=== PATIENT | female | born 1965 | race Caucasian/White ===

== ENCOUNTER → 2021-02-15 | Outpatient (CLI) | payer MEDICARE ==
[2021-02-15 23:18] LABS: Basophils # (A) 0.06 X 10*3/uL (0.00-0.10); Basophils % (A) 0.7 %; Eosinophils # (A) 0.27 X 10*3/uL (0.04-0.35); Eosinophils % (A) 3.1 %; HCT 40.3 % (37.2-46.3); HGB 13.2 g/dL (12.0-15.0); Lymphocytes # (A) 2.77 X 10*3/uL (0.90-5.00); Lymphocytes % (A) 31.9 %; MCH 30.3 pg (27.0-32.0); MCHC 32.8 g/dL (32.0-37.0); MCV 92.4 fL (80.0-97.0); Mean Platelet Volume 10.5 fL (9.5-12.2); Monocytes % (A) 5.8 %; Neutrophils # (A) 5.06 X 10*3/uL (1.80-7.70); Neutrophils % (A) 58.2 %; Platelet Count 287 X 10*3/uL (140-440); RBC 4.36 X 10*6/uL (4.10-5.20); RDW 12.9 % (11.5-14.5); WBC 8.69 X 10*3/uL (4.50-10.00)
[2021-02-16 01:51] LABS: Erythrocyte Sedimentation Rate 12 mm/Hr (0-30)
== END | disposition home or self-care (01) ==
LOC: LABWHC1 15:47
PROVIDERS: ATTEND Physician Assistant
DX: M86.9 Osteomyelitis, unspecified (principal)
CPT/HCPCS: 36415; 85025; 85652; 86140

== ENCOUNTER → 2021-02-25 | Outpatient (CLI) | payer MEDICARE ==
--- NOTE | 2021-02-26 09:15 | CT ---
EXAMINATION TYPE: CT thor lumbar spine wo con DATE OF EXAM: 02/25/2021 COMPARISON: None HISTORY: 55-year-old female back pain and right leg tingling TECHNIQUE: Contiguous axial scanning of the thoracic and lumbar spine without IV contrast. Coronal an d sagittal reconstructions performed. CT DLP: 959 mGycm Automated exposure control for dose reduction was used. FINDINGS: Spinal stimulator array centered along the mid thoracic spinal canal. Leads enter via the T9-T10 inte rlaminar space. Scattered mild disc space narrowing throughout the thoracic spine. Moderate degenerative disc disease L5-S1 with disc space narrowing, right paracentral disc osteophyte complex, and vacuum phenomenon. Bulging disc also noted at L4-L5. Some ligamentum flavum thickening suggested at L3-L4. Within the thoracic spine, no obvious sizable disc herniation is seen or abdomen canal compromise. Th ere is some limitation due to the artifact from the stimulator array. Facet arthropathy lower lumbar spine. At L4-L5, disc bulge impresses on the ventral thecal sac but does not cause clear canal compromise. M ild bilateral neuroforaminal stenosis. At L5-S1, right paracentral disc osteophyte complex may impinge the traversing right S1 nerve root. C hanges involved in moderate right and mild left neuroforaminal stenosis. Vertebral body heights are preserved and alignment is maintained. There is moderate right-sided hydronephrosis with a 1.2 cm calculus at the right UPJ. An additional 1 .1 cm calculus is present in the right renal collecting system and could soon pass to the ureter as w ell. IMPRESSION: 1. MODERATE RIGHT-SIDED HYDRONEPHROSIS WITH A 1.2 CM STONE AT THE RIGHT UPJ. AN ADDITIONAL 1.1 CM DANDY CULUS IN THE RIGHT RENAL COLLECTING SYSTEM COULD SOON PASS TO THE URETER WELL. 2. NO VERTEBRAL COMPRESSION COLLAPSE OR MALALIGNMENT. 3. RIGHT PARACENTRAL DISC OSTEOPHYTE COMPLEX AT L5-S1 WITH MODERATE DEGENERATIVE DISC DISEASE. THIS M AY IMPINGE THE TRAVERSING RIGHT S1 NERVE ROOT. WITH FACET ARTHROPATHY IN THE LOWER LUMBAR SPINE, THER E IS MODERATE RIGHT AND MILD LEFT NEURAL FORAMINAL STENOSIS HERE. 4. MILD DISC BULGE AT L4-L5 WITHOUT SIGNIFICANT SPINAL CANAL STENOSIS. MILD BILATERAL NEUROFORAMINAL STENOSIS HERE.
== END | disposition home or self-care (01) ==
LOC: RADCTMAIN 16:59
PROVIDERS: ATTEND Psychiatry & Neurology Neurology
DX: N13.2 Hydronephrosis with renal and ureteral calculous obstruction (principal); M51.37 Other intervertebral disc degeneration, lumbosacral region; M46.96 Unspecified inflammatory spondylopathy, lumbar region; M48.061 Spinal stenosis, lumbar region without neurogenic claudication
CPT/HCPCS: 72128; 72131

== ENCOUNTER → 2021-09-01 | Outpatient (CLI) | payer MEDICARE, OTHER ==
--- NOTE | 2021-09-01 21:54 | CT ---
EXAMINATION TYPE: CT abdomen pelvis wo con DATE OF EXAM: 09/01/2021 COMPARISON: CT dated 03/03/2014 HISTORY: right flank pain CT DLP: 1093 mGycm Automated exposure control for dose reduction was used. TECHNIQUE: Helical acquisition of images was performed from the lung bases through the pelvis. No IV contrast administration. FINDINGS: Right renal pelvis obstructing stone measuring 12 x 13 mm with moderate to marked dilatation of the r ight renal collecting system, this could be acute or chronic. Mild soft tissue thickening seen surrou nding the right renal pelvis stone, associated infection cannot be excluded. Nonobstructing stone is seen at the lower pole of the right kidney measuring 11 x 12 mm with 2 mm nonobstructing calculus at the midportion of the right kidney. No other definite radiodense urinary calculi. No left-sided hydroureter or hydronephrosis. No right-s ided hydroureter. Grossly unremarkable urinary bladder. 13 mm calcified structure is seen inseparable from the anterior left lateral aspect of the uterus/left adnexa, stable since 2014 CT scan and possi sonali representing tiny calcified subserosal fibroid. Otherwise no gross uterine or adnexal mass. Unremarkable unenhanced CT appearance of the liver, spleen, pancreas and adrenals. The gallbladder is not distended probably due to nonfasting. Mild arterial atherosclerotic calcifications. Unremarkable stomach, duodenum and small bowel. Moderate fecal loading of the colon. No suspicious lymphadenopath y or sizable ascites. Right flank subcutaneous stimulator device. Unremarkable lung bases. Degenerati ve changes at L5-S1 level. IMPRESSION: 13 mm right renal pelvis obstructing stone as described above which could be acute or chronic. Associ ated infection cannot be excluded, please correlate clinically and with urinalysis results. Other rig ht renal nonobstructing calculi and other incidental findings as described above.
== END | disposition home or self-care (01) ==
LOC: RADCTMAIN 15:37
PROVIDERS: ATTEND Urology
DX: N13.2 Hydronephrosis with renal and ureteral calculous obstruction (principal)
CPT/HCPCS: 74176

== ENCOUNTER → 2021-09-13 | Outpatient (CLI) | payer MEDICARE, OTHER ==
[2021-09-13 18:26] LABS: Basophils # (A) 0.08 X 10*3/uL (0.00-0.10); Basophils % (A) 0.6 %; Eosinophils # (A) 0.29 X 10*3/uL (0.04-0.35); Eosinophils % (A) 2.2 %; HCT 43.5 % (37.2-46.3); Immature Grans, Automated 0.5 %; Lymphocytes # (A) 3.55 X 10*3/uL (0.90-5.00); Lymphocytes % (A) 27.1 %; MCHC 32.2 g/dL (32.0-37.0); MCV 90.2 fL (80.0-97.0); Mean Platelet Volume 10.2 fL (9.5-12.2); Monocytes # (A) 0.73 X 10*3/uL (0.20-1.00); Monocytes % (A) 5.6 %; NRBC Per 100 WBC 0 /100 WBCS (0.0-0.0); Neutrophils # (A) 8.38 X 10*3/uL (1.80-7.70); Platelet Count 379 X 10*3/uL (140-440); RBC 4.82 X 10*6/uL (4.10-5.20); RDW 13.1 % (11.5-14.5); WBC 13.09 X 10*3/uL (4.50-10.00)
[2021-09-13 18:48] LABS: African American GFR (CKD) 91.6 (60.0-200.0); Anion Gap 13.5 mmol/L (10.00-18.00); BUN/Creat Ratio 16.06 Ratio (12.00-20.00); Blood Urea Nitrogen 13.3 mg/dL (9.0-27.0); Carbon Dioxide 23.3 mmol/L (20.0-27.5); Non-African American GFR(CKD) 79.1 (60.0-200.0); Potassium 4.6 mmol/L (3.5-5.5)
[2021-09-13 19:48] LABS: Appearance,Urine Cloudy (Clear); Bacteria,Urine 1+ /HPF (None Seen); Bilirubin,Urine Negative (Negative); Blood,Urine Small (Negative); Calcium Oxalate Crystals,Urine Present /LPF (None Seen); Color,Urine Yellow (Yellow); Ketones,Urine Negative (Negative); Leukocyte Esterase,Urine Moderate (Negative); Nitrite,Urine Negative (Negative); PH, Urine 5.5 (5.0-8.0); Protein,Urine 30 (Negative); Specific Gravity,Urine 1.022 (1.001-1.030); Urobilinogen,Urine 0.2 (0.2,1.0); WBC,Urine >100 /HPF (0-5); Yeast (UA) Present /LPF (None Seen)
== END | disposition home or self-care (01) ==
LOC: LABPAT 13:30
PROVIDERS: ATTEND Urology
DX: Z01.812 Encounter for preprocedural laboratory examination (principal); N20.0 Calculus of kidney
CPT/HCPCS: 36415; 80048; 81001; 85025; 87086

== ENCOUNTER 2021-09-20 09:28 | Day surgery (SDC) | payer MEDICARE, OTHER ==
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
[2021-09-16 15:39] VITALS: BMI 36.1
[~2021-09-20 09:28] MED LIST: DEXAMETHASONE SOD PHOSPHATE 4 MG/ML 1 ML VIAL IV ONE; GENTAMICIN 120 MG in SODIUM CHLORIDE 0.9% 100 ML IVPB PRN; LIDOCAINE 1% (10MG/ML) FOR IV START INTRADERMA PRN; ONDANSETRON 4 MG/2 ML VIAL IVP ONE; SCOPOLAMINE 1.5MG/72HR PATCH TRANSDERM ONE
[2021-09-20] MEDS ORDERED: LIDOCAINE 1% (10MG/ML) FOR IV START SQ ONE (10:05)
[2021-09-20] MEDS: LACTATED RINGERS 1,000 ML IV SCH (10:08)
[2021-09-20 10:09] LABS: Glucose,Whole Blood 175 mg/dL (75-99)
[2021-09-20] MEDS ORDERED: GLYCOPYRROLATE 0.2 MG/ML 2 ML VIAL ONE (10:57)
[2021-09-20] MEDS ORDERED: SUCCINYLCHOLINE CHLORIDE 100 MG/5 ML SYR IV ONE (10:57)
[2021-09-20] MEDS ORDERED: NEOSTIGMINE 1 MG/ML 10 ML VIAL ONE (10:57)
[2021-09-20] MEDS ORDERED: ROCURONIUM 10 MG/ML (5 ML VIAL) IV ONE (10:57)
[2021-09-20] MEDS ORDERED: PROPOFOL 10 MG/ML 20 ML VIAL IV ONE (10:57)
[2021-09-20] MEDS ORDERED: MIDAZOLAM 2 MG/2 ML VIAL ONE (10:57)
[2021-09-20] MEDS ORDERED: fentaNYL (PF) 50 MCG/ML 2 ML AMP ONE (10:57)
[2021-09-20] MEDS ORDERED: LIDOCAINE 1% INJ 10MG/ML (20 ML MDV) ONE (10:57)
[2021-09-20] MEDS ORDERED: IOPAMIDOL-370 50ML BTL IRRIGATION ONE ×2 (11:20)
[2021-09-20] MEDS: HYDROmorphone 0.5 MG/0.5 ML SYRINGE IVP PRN ×4 (12:30→15:35)
--- NOTE | 2021-09-20 12:30 | P.OP ---
Date of Procedure: 09/20/21 Preoperative Diagnosis: Right sided ureteral stone Postoperative Diagnosis: Right-sided ureteral stone and pyelonephritis Anesthesia: SRIA Surgeon: Eagle Lorenzo Estimated Blood Loss (ml): 10 Pathology: other (right renal culture) Condition: stable Disposition: PACU Indications for Procedure: This is a 55-year-old female with history of multiple right sided renal stone, total stone burden > 2 cm. Discussed with him the option of a right-sided percutaneous nephrolithotomy. Option of right staged ureteroscopy was also discussed. Risk and benefit of each approach were discussed in detail. She agreed to proceed with right-sided percutaneous nephrolithotomy. Discussed with him the risk which includes but not limited to bleeding, infection, injury to nearby organs which includes but not limited to bowel, spleen, lung. Discussed also with her risk from anesthesia. She understood all the risk and agreed to proceed right-sided percutaneous nephrolithotomy Operative Findings: Right Purulent urine from the collecting system Description of Procedure: Patient was brought to the operating room, general anesthesia was induced. On the stretcher a cystoscopy fitted with 21-Icelandic sheath was inserted per urethra, brief cystoscopy was performed which showed multiple white patches within the bladder, but no tumors were appreciated. 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 At this time the right ureteral orifice was intubated with a sensor wire. Next a ureteral balloon dilator was passed over the wire and into the proximal ureter. Next the a Gutierrez catheter was placed and the balloon occlusion catheter was secured to the Gutierrez. . Next the patient was positioned in prone, all pressure points were padded. Next air was injected through the balloon occlusion catheter, and access was obtained by interventional radiology, by Dr Santos. Once the access was obtained purulent urine was drained from the collecting system. The given this finding decision was made to abort the PCNL. Nephrostomy tube was placed by Dr. Ferrer, the urine sample was sent for culture. The patient was stable throughout the case. At this time she was awakened from anesthesia and taken to recovery in stable condition. She will be set up for a PCNL once her infection resolves
[2021-09-20] MEDS ORDERED: COLCHICINE 0.6 MG EACH PO PRN (12:36)
[2021-09-20] MEDS ORDERED: CYCLOBENZAPRINE 5 MG TAB PO PRN (12:36)
[2021-09-20] MEDS ORDERED: KETOROLAC 15 MG/ML 1 ML VIAL IVP ONE (13:13)
--- NOTE | 2021-09-20 13:30 | FL ---
EXAMINATION TYPE: FL guidance operating room DATE OF EXAM: 09/20/2021 COMPARISON: CT 09/01/2021 HISTORY: Hydronephrosis, ureteral obstruction with right nephrolithiasis. PROCEDURE: Maximal barrier technique was utilized, hand hygiene obtained with soap and water and alcohol-based h and rub. The skin overlying the right kidney was localized using fluoroscopy and the overlying skin prepped and draped. Skin janes was made with a scalpel. Access was gained under fluoroscopy, followin g placement of a ureteral occlusion balloon by the referring clinician and instillation of air in the renal collecting system with a 21-gauge needle to the posterior calyx right kidney. A suitable post erior calyx was chosen. A 0.018 inch wire was advanced. Transitional dilator was deployed, purulent material was noted in the hub of the catheter. Referring clinician then elected for nephrostomy tube placement. 10 Lithuanian tube was advanced over wire under fluoroscopy and fixed in place. Aspirated spe cimen submitted for microbiology analysis. The patient remained in stable condition without complicat ion. The patient was discharged to observation in the care of anesthesia. IMPRESSION: STATUS POST NEPHROSTOMY PLACEMENT WITH FLUOROSCOPIC GUIDANCE. THIS PROCEDURE PERFORMED BY THE UNDERS IGNED. Nephrolithotomy aborted due to pyonephrosis. 4.08 minutes fluoroscopy time, single image th e procedure
[2021-09-20] MEDS ORDERED: LEVOFLOXACIN 500MG-D5W PMX 500 MG in DEXTROSE/WATER 1 100ML.BAG IVPB SCH (17:00)
[2021-09-20] MEDS: HEPARIN SODIUM,PORCINE/PF 5,000 UNIT/0.5 ML SYRINGE SQ SCH (17:35)
[2021-09-20] MEDS: POTASSIUM CITRATE 10 MEQ TABLET.ER PO SCH ×2 (17:41→23:20)
[2021-09-20] MEDS: D5-0.45% NACL WITH KCL 20MEQ/L 1,000 ML IV SCH (18:09)
[2021-09-20] MEDS: MORPHINE SULFATE 4 MG/ML SYRINGE IV PRN ×2 (18:09→23:28)
[2021-09-20 20:26] LABS: Glucose,Whole Blood 325 mg/dL (75-99)
[2021-09-20] MEDS ORDERED: GABAPENTIN 400 MG CAP PO SCH (21:00)
[2021-09-20] MEDS ORDERED: traZODone HCL 100 MG TAB PO SCH (21:00)
[2021-09-20] MEDS: metFORMIN 500 MG TAB PO SCH (23:16)
[2021-09-20] MEDS: HYDROcodone/APAP 10-325MG 1 EACH TAB PO PRN (23:27)
[2021-09-20] MEDS: KETOROLAC 15 MG/ML 1 ML VIAL IVP PRN (23:28)
[2021-09-21] MEDS: HEPARIN SODIUM,PORCINE/PF 5,000 UNIT/0.5 ML SYRINGE SQ SCH ×2 (00:36→08:01)
[2021-09-21] MEDS: D5-0.45% NACL WITH KCL 20MEQ/L 1,000 ML IV SCH ×2 (02:07→09:49)
[2021-09-21] MEDS: HYDROcodone/APAP 10-325MG 1 EACH TAB PO PRN ×2 (05:21→12:38)
[2021-09-21] MEDS: KETOROLAC 15 MG/ML 1 ML VIAL IVP PRN (05:22)
[2021-09-21 07:03] LABS: Glucose,Whole Blood 260 mg/dL (75-99)
--- NOTE | 2021-09-21 07:18 | P.DS ---
Providers Attending physician: Eagle Lorenzo MD Primary care physician: [facility] Hospital Course: The patient is 55. She has infected kidney stones. She underwent a percutaneous nephrostomy tube placement yesterday. This was an attempt to do a percutaneous nephrostolithotomy but the urine was grossly infected therefore the procedure appropriately was aborted. She did well overnight without fever chills or significant pain. Vital signs are stable. We will discharge her home today. She'll given a prescription of Fraz[place] and Cipro. Dr. Lorenzo we'll set her up for a percutaneous nephrostolithotomy after the urine infection has been treated. Her condition is good. She'll go home with a nephrostomy tube. Patient Condition at Discharge: Good Plan - Discharge Summary Discharge Rx Participant: Yes New Discharge Prescriptions: New HYDROcodone/APAP 5-325MG [Frazee 5-325] 1 tab PO Q4HR PRN #14 tab PRN Reason: Pain Control Ciprofloxacin HCl [Cipro] 500 mg PO Q12HR 1 Days #20 tab No Action Naproxen [Naprosyn] 500 mg PO Q12HR PRN PRN Reason: Pain RX: Gabapentin 800 mg PO HS HYDROcodone/APAP 10-325MG [[place]ee 10-325] 1 tab PO BID PRN PRN Reason: Pain Potassium Citrate [Potassium Citrate ER] 10 meq PO QID Nitrofurantoin Macrocrystal [Nitrofurantoin] 100 mg PO DAILY Colchicine [Mitigare] 0.6 mg PO DAILY PRN PRN Reason: GOUT FLARE Varenicline [Chantix Continuing Pack] 1 mg PO DAILY Chlorzoxazone [Parafon Forte DSC] 500 mg PO QID PRN PRN Reason: MUSCLE RELAXER metFORMIN HCL [Glucophage] 500 mg PO BID Allopurinol [Zyloprim] 100 mg PO DAILY Cephalexin [Keflex] 500 mg PO Q12HR Morphine Sulfate [Ms Contin] 30 mg PO Q12HR Linagliptin [Tradjenta] 5 mg PO DAILY Rosuvastatin [Crestor] 10 mg PO DAILY RX: Medroxyprogesterone Acetate 5 mg PO DAILY RX: traZODone HCL 100 mg PO HS Ubrogepant [Ubrelvy] 100 mg PO DAILY PRN PRN Reason: Migraine Headache Ergocalciferol [Vitamin D2 (1250 Mcg = 17809 Iu)] 1,250 mcg PO MO Discharge Medication List Naproxen [Naprosyn] 500 mg PO Q12HR PRN 03/03/14 [History] RX: Gabapentin 800 mg PO HS 03/03/14 [History] Allopurinol [Zyloprim] 100 mg PO DAILY 09/16/21 [History] Cephalexin [Keflex] 500 mg PO Q12HR 09/16/21 [History] Chlorzoxazone [Parafon Forte DSC] 500 mg PO QID PRN 09/16/21 [History] Colchicine [Mitigare] 0.6 mg PO DAILY PRN 09/16/21 [History] Ergocalciferol [Vitamin D2 (1250 Mcg = 05227 Iu)] 1,250 mcg PO MO 09/16/21 [History] HYDROcodone/APAP 10-325MG [Frazee 10-325] 1 tab PO BID PRN 09/16/21 [History] Linagliptin [Tradjenta] 5 mg PO DAILY 09/16/21 [History] Morphine Sulfate [Ms Contin] 30 mg PO Q12HR 09/16/21 [History] Nitrofurantoin Macrocrystal [Nitrofurantoin] 100 mg PO DAILY 09/16/21 [History] Potassium Citrate [Potassium Citrate ER] 10 meq PO QID 09/16/21 [History] RX: Medroxyprogesterone Acetate 5 mg PO DAILY 09/16/21 [History] RX: traZODone HCL 100 mg PO HS 09/16/21 [History] Rosuvastatin [Crestor] 10 mg PO DAILY 09/16/21 [History] Ubrogepant [Ubrelvy] 100 mg PO DAILY PRN 09/16/21 [History] Varenicline [Chantix Continuing Pack] 1 mg PO DAILY 09/16/21 [History] metFORMIN HCL [Glucophage] 500 mg PO BID 09/16/21 [History] Ciprofloxacin HCl [Cipro] 500 mg PO Q12HR 1 Days #20 tab 09/21/21 [Rx] HYDROcodone/APAP 5-325MG [Frazee 5-325] 1 tab PO Q4HR PRN #14 tab 09/21/21 [Rx] Follow up Appointment(s)/Referral(s): Eagle Lorenzo MD [STAFF PHYSICIAN] - 1 Week Discharge Disposition: HOME SELF-CARE
[2021-09-21 07:48] VITALS: BP 99/63; PULSE 72; RESP 18; TEMP 98.4
[2021-09-21] MEDS: LACTATED RINGERS 1,000 ML IV SCH (08:01)
[2021-09-21] MEDS: POTASSIUM CITRATE 10 MEQ TABLET.ER PO SCH ×2 (08:24→12:38)
[2021-09-21] MEDS: metFORMIN 500 MG TAB PO SCH (08:24)
[2021-09-21 08:56] LABS: Basophils # (A) 0.04 X 10*3/uL (0.00-0.10); Basophils % (A) 0.3 %; Eosinophils # (A) 0.07 X 10*3/uL (0.04-0.35); Eosinophils % (A) 0.5 %; HCT 36.1 % (37.2-46.3); HGB 11.4 g/dL (12.0-15.0); Immature Grans, Automated 0.5 %; Lymphocytes # (A) 3.25 X 10*3/uL (0.90-5.00); MCH 28.4 pg (27.0-32.0); MCHC 31.6 g/dL (32.0-37.0); Mean Platelet Volume 10.1 fL (9.5-12.2); Monocytes # (A) 1.07 X 10*3/uL (0.20-1.00); Monocytes % (A) 6.9 %; NRBC Per 100 WBC 0 /100 WBCS (0.0-0.0); Neutrophils # (A) 10.94 X 10*3/uL (1.80-7.70); Neutrophils % (A) 70.8 %; Platelet Count 307 X 10*3/uL (140-440); RBC 4.01 X 10*6/uL (4.10-5.20); RDW 13.1 % (11.5-14.5); WBC 15.44 X 10*3/uL (4.50-10.00)
[2021-09-21] MEDS ORDERED: VARENICLINE 1 MG TAB PO SCH (09:00)
[2021-09-21] MEDS ORDERED: LINAGLIPTIN 5 MG TABLET PO SCH (09:00)
[2021-09-21] MEDS ORDERED: allopurinoL 100 MG TAB PO SCH (09:00)
[2021-09-21] MEDS ORDERED: ATORVASTATIN 20 MG TAB PO SCH (09:00)
[2021-09-21 11:03] LABS: Glucose,Whole Blood 224 mg/dL (75-99)
== END 2021-09-21 13:12 | disposition home or self-care (01) ==
LOC: OR 09:28 → 4SSUR 12:15 → OR 09-21 13:12
PROVIDERS: ATTEND Urology
DX: N20.1 Calculus of ureter (principal); N12 Tubulo-interstitial nephritis, not specified as acute or chronic; E78.5 Hyperlipidemia, unspecified; F17.200 Nicotine dependence, unspecified, uncomplicated; E11.9 Type 2 diabetes mellitus without complications; M10.9 Gout, unspecified; M19.90 Unspecified osteoarthritis, unspecified site
CPT/HCPCS: 50080; 85025; 87086; C2628; C1894; C1729; C1769; J2250; J2270; J1100; J2710; J0690; J2405; J1956; J2001; J3010; J1580; J1885 ×2; J0330; J2704; J1170; Q9967; 87075

== ENCOUNTER → 2021-10-27 | Outpatient (CLI) | payer MEDICARE, OTHER ==
[2021-10-27 23:28] LABS: HCT 44.3 % (37.2-46.3); HGB 14.2 g/dL (12.0-15.0); MCH 28.6 pg (27.0-32.0); MCHC 32.1 g/dL (32.0-37.0); MCV 89.1 fL (80.0-97.0); Mean Platelet Volume 9.8 fL (9.5-12.2); NRBC Per 100 WBC 0 /100 WBCS (0.0-0.0); Platelet Count 423 X 10*3/uL (140-440); RBC 4.97 X 10*6/uL (4.10-5.20); RDW 13.4 % (11.5-14.5); WBC 16.19 X 10*3/uL (4.50-10.00)
[2021-10-28 00:16] LABS: African American GFR (CKD) 89.3 (60.0-200.0); Anion Gap 12.2 mmol/L (10.00-18.00); BUN/Creat Ratio 15.13 Ratio (12.00-20.00); Blood Urea Nitrogen 12.8 mg/dL (9.0-27.0); Calcium 9.8 mg/dL (8.7-10.3); Carbon Dioxide 22.5 mmol/L (20.0-27.5); Potassium 4.3 mmol/L (3.5-5.5)
[2021-10-28 02:12] LABS: Appearance,Urine Turbid (Clear); Bilirubin,Urine Negative (Negative); Blood,Urine Large (Negative); Color,Urine Yellow (Yellow); Ketones,Urine Negative (Negative); Nitrite,Urine Negative (Negative); PH, Urine 5.5 (5.0-8.0)
[2021-10-28 03:50] LABS: Bacteria,Urine Trace /HPF (None Seen); Yeast (UA) Present /LPF (None Seen)
== END | disposition home or self-care (01) ==
LOC: LABWHC1 15:19
PROVIDERS: ATTEND Urology
DX: Z01.812 Encounter for preprocedural laboratory examination (principal); Z01.818 Encounter for other preprocedural examination; N20.1 Calculus of ureter
CPT/HCPCS: 36415; 80048; 81001; 85027; 87086

== ENCOUNTER 2021-11-03 10:21 | Inpatient (IN) | payer MEDICARE, OTHER ==
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
[2021-11-02 10:53] VITALS: BMI 35.5
[~2021-11-03 10:21] MED LIST changes: -SCOPOLAMINE 1.5MG/72HR PATCH TRANSDERM ONE
--- NOTE | 2021-11-03 10:45 | XR ---
KUB HISTORY: Preop Frontal KUB and 2 images, correlation prior exam 10/19/2021 Right-sided nephrostomy tube is in place. Calcifications are noted over the right kidney, one of the calcifications seen at the level of the renal pelvis on prior exam may have migrated into the renal c ollecting system. There is a stimulator present as on prior exam over the right gluteal region. IMPRESSION: Right-sided nephrolithiasis and indwelling nephrostomy tube. Additional post procedural c hange.
[2021-11-03 11:35] LABS: Glucose,Whole Blood 152 mg/dL (75-99)
[2021-11-03] MEDS: LACTATED RINGERS 1,000 ML IV SCH ×3 (11:41→17:46)
[2021-11-03] MEDS ORDERED: KETAMINE 10 MG/ML 20 ML VIAL ONE (12:10)
[2021-11-03] MEDS ORDERED: fentaNYL (PF) 50 MCG/ML 2 ML AMP ONE (12:10)
[2021-11-03] MEDS ORDERED: GLYCOPYRROLATE 0.2 MG/ML 2 ML VIAL ONE (12:10)
[2021-11-03] MEDS ORDERED: LIDOCAINE 2% INJ 20 MG/ML (2 ML VIAL) ONE (12:10)
[2021-11-03] MEDS ORDERED: NEOSTIGMINE 1 MG/ML 10 ML VIAL ONE (12:10)
[2021-11-03] MEDS ORDERED: ROCURONIUM 10 MG/ML (5 ML VIAL) IV ONE (12:10)
[2021-11-03] MEDS ORDERED: SUCCINYLCHOLINE CHLORIDE 100 MG/5 ML SYR IV ONE (12:10)
[2021-11-03] MEDS ORDERED: HYDROmorphone (PF) 1 MG/ML ONE (12:10)
[2021-11-03] MEDS ORDERED: PROPOFOL 10 MG/ML 20 ML VIAL IV ONE (12:10)
[2021-11-03] MEDS ORDERED: MIDAZOLAM 2 MG/2 ML VIAL ONE (12:10)
[2021-11-03] MEDS ORDERED: IOPAMIDOL-370 50ML BTL IRRIGATION ONE ×3 (12:49)
[2021-11-03] MEDS ORDERED: LACTATED RINGERS 1,000 ML IV ONE (14:00)
[2021-11-03] MEDS ORDERED: SUMAtriptan succinate 50 MG TAB PO PRN (16:45)
--- NOTE | 2021-11-03 16:45 | P.OP ---
Date of Procedure: 11/03/21 Preoperative Diagnosis: right sided ureteral stone Postoperative Diagnosis: same Procedure(s) Performed: Right sided PCNL, Anterograde nephrostogram, Antegrade stent placement and Nephrostomy tube exchange Implants: 6-Argentine by 26 cm stent in the right ureter Anesthesia: GUILLERMINA Surgeon: Eagle Lorenzo Estimated Blood Loss (ml): 100 Pathology: other (Right-sided ureteral stone) Condition: stable Disposition: PACU Indications for Procedure: This is a 55-year-old female with history of multiple right sided renal stone, total stone burden > 2 cm. she underwent a right sided nephrostomy tube placement on September 20, at that time purulent urine was drained from collecting systemt thus a PCNL was not performed. Discussed with her the option of a right-sided percutaneous nephrolithotomy. Option of right staged ureteroscopy was also discussed. Risk and benefit of each approach were discussed in detail. She agreed to proceed with right-sided percutaneous nephrolithotomy. Discussed with him the risk which includes but not limited to bleeding, infection, injury to nearby organs which includes but not limited to bowel, spleen, lung. Discussed also with her risk from anesthesia. She understood all the risk and agreed to proceed right-sided percutaneous nephrolithotomy Description of Procedure: Patient was brought to the operating room, general anesthesia was induced. A Gutierrez catheter was placed, next the patient was placed in a prone position, all pressure points were padded. Next the patient was prepped and draped in sterile fashion and placed in a prone position. Next a performed an antegrade nephrostogram on the right sided that showed no contrast draining past the UPJ stone. Next a sensor wire was advanced through the nephrostomy tube, and I was able to navigate the wire past the stone and into the bladder. Next I used 810 Argentine dilators and advanced over the sensor wire. Next a second stiff wire was advanced through the 10-Argentine dilators and at this time there was 2 wires down the ureter. Next incision was increased in size to accommodate for the access sheath. Next the NephroMax balloon dilator was passed over the stiff wire and into the calyx. And this was inflated under fluoroscopy. Next the the 30- Argentine sheath was advanced over the balloon dilator under fluoroscopy. Next the nephroscope was advanced through and a large stone was visualized at the UPJ. I was unable to fragment the stone using the rigid nephroscope. At this time I switched to the flexible cystoscope attention was then carried to the stone. Using holmium laser the stone was fragmented, sizable fragments were removed using the stone basket. After fragmenting the stone with the holmium laser there was no injury to the ureter, but there was significant edema at the site of stone impaction. Repeat renoscopy showed no additional stones within the collecting system. Next I attempted to address the lower pole stone using the flexible cystoscope, but it could not be visualized. I Was able to visualize the lower pole stone using the flexible ureteroscope, but of note the scope was at maximum flexion and I was only able to partially visualized the stone, stone was impacted within narrowed infundibulum. The stone was within a very narrowed infundibulum, I incised the infundibulum in order to access the stone. But again given the angle of the stone I was only able to partially visualize the . Using the holmium laser I Attempted to dust the stone, I was able to dust the upper edge of the stone, Attempts were made to basket the stone in order to reposition it using the stone basket but I was unsuccessful, attempted to use the Zero tip basket and the Edouard basket. Next I switched to the flexible cystoscope and a I complete renoscopy was performed which showed no additional stones within the kidney, the exception of some residual stone in the lower pole that are deseribed above . Next a antegrade nephrostogram was performed which showed no additional filling defects. Next a second wire was advanced through the ureter and into the bladder. A ureteral stent was passed over the wire, the curl within the bladder was visualized on fluoroscopy and the curl within the kidney was visualized using the nephroscope. Next a second wire was advanced through the nephroscope, At this time a nephrostomy tube was passed over the wire and the wire was removed with the nephrostomy tube in the renal pelvis. Antegrade nephrostogram was performed which showed no evidence of contrast extravasation, and contrast was draining down the ureter. At this time the incision was closed using 2-0 Vicryl and the nephrostomy tube was secured to the patient's skin using 2-0 silk. The patient was awakened from anesthesia and taken to recovery in stable condition
[2021-11-03] MEDS: HYDROmorphone 0.5 MG/0.5 ML SYRINGE IVP PRN ×4 (16:46→17:21)
[2021-11-03] MEDS: KETOROLAC 15 MG/ML 1 ML VIAL IVP SCH ×2 (17:12→23:43)
[2021-11-03] MEDS: SODIUM CHLORIDE 0.9% 1,000 ML IV SCH (17:45)
[2021-11-03] MEDS ORDERED: SODIUM CHLORIDE 0.9% 1,000 ML IV ONE (17:54)
[2021-11-03] MEDS: POTASSIUM CITRATE 10 MEQ TABLET.ER PO SCH ×2 (18:29→23:44)
[2021-11-03] MEDS: MORPHINE SULFATE ER 30 MG TABLET PO SCH (22:17)
[2021-11-03] MEDS: metFORMIN 500 MG TAB PO SCH (22:18)
[2021-11-03] MEDS: GABAPENTIN 400 MG CAP PO SCH (22:18)
[2021-11-03] MEDS: CYCLOBENZAPRINE 5 MG TAB PO SCH (22:18)
[2021-11-03] MEDS: traZODone HCL 100 MG TAB PO SCH (23:44)
[2021-11-04] MEDS: SODIUM CHLORIDE 0.9% 1,000 ML IV SCH ×3 (00:05→18:07)
[2021-11-04] MEDS: KETOROLAC 15 MG/ML 1 ML VIAL IVP SCH ×3 (05:23→17:57)
[2021-11-04] MEDS: LACTATED RINGERS 1,000 ML IV SCH ×2 (08:51→18:12)
[2021-11-04] MEDS: MORPHINE SULFATE ER 30 MG TABLET PO SCH ×2 (09:21→23:27)
[2021-11-04] MEDS: CYCLOBENZAPRINE 5 MG TAB PO SCH ×3 (09:22→23:28)
[2021-11-04] MEDS: LINAGLIPTIN 5 MG TABLET PO SCH (09:22)
[2021-11-04] MEDS: ATORVASTATIN 20 MG TAB PO SCH (09:22)
[2021-11-04] MEDS: metFORMIN 500 MG TAB PO SCH ×2 (09:22→23:28)
[2021-11-04] MEDS: allopurinoL 100 MG TAB PO SCH (09:22)
[2021-11-04] MEDS: METOPROLOL SUCCINATE (ER) 25 MG TAB.ER.24H PO SCH ×2 (09:22→09:25)
[2021-11-04] MEDS: POTASSIUM CITRATE 10 MEQ TABLET.ER PO SCH ×4 (09:22→23:27)
[2021-11-04] MEDS: VARENICLINE 1 MG TAB PO SCH (09:23)
--- NOTE | 2021-11-04 09:58 | FL ---
Fluoroscopy HISTORY: Stent insertion in right ureter 1.18 minutes fluoroscopy time supplied to the referring clinician. 1 intraoperative C-arm images doc ument the procedure. See dictated report from urology.
--- NOTE | 2021-11-04 15:15 | P.PN ---
Progress Note - Text Progress Note Date: 11/04/21 Postoperative day #1 status post right-sided PCNL. Has not ambulated yet, still having flank pain. Indicated pain is controlled with current pain medication nephrostomy tube draining light red urine. No evidence of flank ecchymosis, abdomen is soft nontender A/P S/P right sided PCNL -Ambulate -Pain control -Given patient's limited mobility at this time we'll keep the catheter until tomorrow,
[2021-11-04] MEDS: HYDROmorphone 1 MG/ML 1 ML SYRINGE IVP PRN (23:14)
[2021-11-04] MEDS: GABAPENTIN 400 MG CAP PO SCH (23:27)
[2021-11-04] MEDS: traZODone HCL 100 MG TAB PO SCH (23:27)
[2021-11-05] MEDS: KETOROLAC 15 MG/ML 1 ML VIAL IVP SCH ×4 (07:49→18:04)
[2021-11-05] MEDS: LACTATED RINGERS 1,000 ML IV SCH ×2 (07:50→15:05)
[2021-11-05] MEDS: SODIUM CHLORIDE 0.9% 1,000 ML IV SCH ×3 (07:50→15:04)
[2021-11-05] MEDS: HYDROmorphone 1 MG/ML 1 ML SYRINGE IVP PRN (08:05)
[2021-11-05] MEDS: MORPHINE SULFATE ER 30 MG TABLET PO SCH ×2 (09:53→23:57)
[2021-11-05] MEDS: allopurinoL 100 MG TAB PO SCH (09:53)
[2021-11-05] MEDS: metFORMIN 500 MG TAB PO SCH ×2 (09:53→23:58)
[2021-11-05] MEDS: LINAGLIPTIN 5 MG TABLET PO SCH (09:53)
[2021-11-05] MEDS: METOPROLOL SUCCINATE (ER) 25 MG TAB.ER.24H PO SCH (09:53)
[2021-11-05] MEDS: ATORVASTATIN 20 MG TAB PO SCH (09:53)
[2021-11-05] MEDS: CYCLOBENZAPRINE 5 MG TAB PO SCH ×3 (09:53→23:58)
[2021-11-05] MEDS: VARENICLINE 1 MG TAB PO SCH (10:45)
[2021-11-05] MEDS: POTASSIUM CITRATE 10 MEQ TABLET.ER PO SCH ×4 (12:20→23:58)
--- NOTE | 2021-11-05 14:20 | P.PN ---
Progress Note - Text Progress Note Date: 11/05/21 Postoperative day #2 status post right-sided PCNL. Has not ambulated yet, still having flank pain, but improved compared to yesterday. Indicated pain is controlled with current pain medication nephrostomy tube draining light red urine. No evidence of flank ecchymosis, abdomen is soft nontender A/P S/P right sided PCNL -Ambulate -Pain control -Remove Gutierrez
[2021-11-05] MEDS: GABAPENTIN 400 MG CAP PO SCH (23:57)
[2021-11-05] MEDS: traZODone HCL 100 MG TAB PO SCH (23:58)
[2021-11-06] MEDS: KETOROLAC 15 MG/ML 1 ML VIAL IVP SCH ×3 (00:19→12:27)
[2021-11-06] MEDS: SODIUM CHLORIDE 0.9% 1,000 ML IV SCH ×3 (06:17→14:30)
[2021-11-06] MEDS: LACTATED RINGERS 1,000 ML IV SCH (08:00)
[2021-11-06] MEDS: metFORMIN 500 MG TAB PO SCH (08:13)
[2021-11-06] MEDS: CYCLOBENZAPRINE 5 MG TAB PO SCH (08:13)
[2021-11-06] MEDS: LINAGLIPTIN 5 MG TABLET PO SCH (08:13)
[2021-11-06] MEDS: MORPHINE SULFATE ER 30 MG TABLET PO SCH (08:14)
[2021-11-06] MEDS: ATORVASTATIN 20 MG TAB PO SCH (08:14)
[2021-11-06] MEDS: POTASSIUM CITRATE 10 MEQ TABLET.ER PO SCH ×2 (08:14→12:28)
[2021-11-06] MEDS: VARENICLINE 1 MG TAB PO SCH (08:14)
[2021-11-06] MEDS: METOPROLOL SUCCINATE (ER) 25 MG TAB.ER.24H PO SCH (08:14)
[2021-11-06] MEDS: allopurinoL 100 MG TAB PO SCH (08:14)
[2021-11-06 08:30] VITALS: BP 93/54; PULSE 88; RESP 20; TEMP 98.1
--- NOTE | 2021-11-06 12:58 | P.DS ---
Providers Date of admission: 11/05/21 09:37 Attending physician: Eagle Lorenzo MD Primary care physician: [facility] Course: 55-year-old female with history of a right-sided renal stone. Underwent a right-sided PCNL on November 03. Her Gutierrez catheter was removed on postop day #2. Patient had a prolonged hospital stay secondary to pain, of note she does have history of chronic pain. Her nephrostomy tube was removed on postop day #3. She was discharged home on postoperative day #3. At time of discharge she was tolerating a diet, ambulating, pain was well-controlled Plan - Discharge Summary Discharge Rx Participant: Yes New Discharge Prescriptions: No Action Naproxen [Naprosyn] 500 mg PO Q12HR PRN PRN Reason: Pain Gabapentin 800 mg PO HS HYDROcodone/APAP 10-325MG [[place] 10-325] 1 tab PO BID PRN PRN Reason: Pain Potassium Citrate [Potassium Citrate ER] 10 meq PO QID Colchicine [Mitigare] 0.6 mg PO DAILY PRN PRN Reason: GOUT FLARE Varenicline [Chantix Continuing Pack] 1 mg PO DAILY metFORMIN HCL [Glucophage] 500 mg PO BID Allopurinol [Zyloprim] 100 mg PO DAILY Morphine Sulfate [Ms Contin] 30 mg PO Q12H Linagliptin [Tradjenta] 5 mg PO DAILY Metoprolol Succinate (ER) [Toprol XL] 25 mg PO DAILY Chlorzoxazone [Parafon Forte DSC] 500 mg PO TID Rosuvastatin [Crestor] 10 mg PO DAILY Medroxyprogesterone Acetate 5 mg PO DAILY traZODone HCL 100 mg PO HS Ergocalciferol [Vitamin D2 (1250 Mcg = 55682 Iu)] 1,250 mcg PO MO SUMAtriptan succinate [Imitrex] 50 mg PO BID PRN PRN Reason: Migraine Headache Nitrofurantoin Macrocrystal [Macrodantin] 100 mg PO DAILY Ciprofloxacin/Ciprofloxa HCl [Ciprofloxacin ER] 500 mg PO BID Discharge Medication List Gabapentin 800 mg PO HS 03/03/14 [History] Naproxen [Naprosyn] 500 mg PO Q12HR PRN 03/03/14 [History] Allopurinol [Zyloprim] 100 mg PO DAILY 09/16/21 [History] Colchicine [Mitigare] 0.6 mg PO DAILY PRN 09/16/21 [History] Ergocalciferol [Vitamin D2 (1250 Mcg = 40590 Iu)] 1,250 mcg PO MO 09/16/21 [History] HYDROcodone/APAP 10-325MG [[place] 10-325] 1 tab PO BID PRN 09/16/21 [History] Linagliptin [Tradjenta] 5 mg PO DAILY 09/16/21 [History] Medroxyprogesterone Acetate 5 mg PO DAILY 09/16/21 [History] Morphine Sulfate [Ms Contin] 30 mg PO Q12H 09/16/21 [History] Potassium Citrate [Potassium Citrate ER] 10 meq PO QID 09/16/21 [History] Rosuvastatin [Crestor] 10 mg PO DAILY 09/16/21 [History] Varenicline [Chantix Continuing Pack] 1 mg PO DAILY 09/16/21 [History] metFORMIN HCL [Glucophage] 500 mg PO BID 09/16/21 [History] traZODone HCL 100 mg PO HS 09/16/21 [History] Chlorzoxazone [Parafon Forte DSC] 500 mg PO TID 10/19/21 [History] Metoprolol Succinate (ER) [Toprol XL] 25 mg PO DAILY 10/19/21 [History] SUMAtriptan succinate [Imitrex] 50 mg PO BID PRN 10/19/21 [History] Ciprofloxacin/Ciprofloxa HCl [Ciprofloxacin ER] 500 mg PO BID 11/03/21 [History] Nitrofurantoin Macrocrystal [Macrodantin] 100 mg PO DAILY 11/03/21 [History]
== END 2021-11-06 15:13 | disposition home or self-care (01) | DRG 661 ==
LOC: OR 10:21 → 4SSUR 16:15 → OR 11-05 09:37
PROVIDERS: ADMIT Urology; ATTEND Urology
PROC: 0T763DZ Dilation of Right Ureter with Intraluminal Device, Percutaneous Approach (ICD-10-PCS; 2021-11-03)
PROC: 0T25X0Z Change Drainage Device in Kidney, External Approach (ICD-10-PCS; 2021-11-03)
PROC: BT111ZZ Fluoroscopy of Right Kidney using Low Osmolar Contrast (ICD-10-PCS; 2021-11-03)
PROC: 0TC03ZZ Extirpation of Matter from Right Kidney, Percutaneous Approach (ICD-10-PCS; principal; 2021-11-03 12:00)
DX: N20.1 Calculus of ureter (principal); Z87.442 Personal history of urinary calculi; Z79.1 Long term (current) use of non-steroidal anti-inflammatories (NSAID); Z79.899 Other long term (current) drug therapy; Z79.891 Long term (current) use of opiate analgesic
CPT/HCPCS: 50435; 74018; 82365; 86850; 86900; 86901

== ENCOUNTER → 2021-12-01 | Outpatient (CLI) | payer MEDICARE, OTHER ==
[2021-12-01 23:36] LABS: Appearance,Urine Turbid (Clear); Bilirubin,Urine Negative (Negative); Blood,Urine Large (Negative); Color,Urine Yellow (Yellow); Ketones,Urine Negative (Negative); Nitrite,Urine Negative (Negative); PH, Urine 5.5 (5.0-8.0); Specific Gravity,Urine 1.019 (1.001-1.030); Urobilinogen,Urine 0.2 (0.2,1.0)
[2021-12-02 00:22] LABS: Bacteria,Urine Trace /HPF (None Seen); Calcium Oxalate Crystals,Urine Present /LPF (None Seen); Yeast (UA) Present /LPF (None Seen)
[2021-12-02 01:44] LABS: Basophils # (A) 0.08 X 10*3/uL (0.00-0.10); Basophils % (A) 0.6 %; Eosinophils % (A) 4.5 %; HCT 42.4 % (37.2-46.3); HGB 13.4 g/dL (12.0-15.0); Immature Grans, Automated 0.5 %; Lymphocytes # (A) 3.39 X 10*3/uL (0.90-5.00); Lymphocytes % (A) 25.7 %; MCH 28.2 pg (27.0-32.0); MCHC 31.6 g/dL (32.0-37.0); MCV 89.3 fL (80.0-97.0); Mean Platelet Volume 10.3 fL (9.5-12.2); Monocytes # (A) 0.81 X 10*3/uL (0.20-1.00); Monocytes % (A) 6.1 %; NRBC Per 100 WBC 0 /100 WBCS (0.0-0.0); Neutrophils # (A) 8.26 X 10*3/uL (1.80-7.70); Neutrophils % (A) 62.6 %; Platelet Count 325 X 10*3/uL (140-440); RBC 4.75 X 10*6/uL (4.10-5.20); RDW 13.6 % (11.5-14.5)
[2021-12-02 03:08] LABS: African American GFR (CKD) 95.2 (60.0-200.0); Anion Gap 9.3 mmol/L (10.00-18.00); BUN/Creat Ratio 8.75 Ratio (12.00-20.00); Calcium 9.4 mg/dL (8.7-10.3); Carbon Dioxide 22.9 mmol/L (20.0-27.5); Non-African American GFR(CKD) 82.2 (60.0-200.0); Potassium 4.4 mmol/L (3.5-5.5)
== END | disposition home or self-care (01) ==
LOC: LABPAT 15:19
PROVIDERS: ATTEND Urology
DX: Z01.812 Encounter for preprocedural laboratory examination (principal); D49.4 Neoplasm of unspecified behavior of bladder; N20.0 Calculus of kidney
CPT/HCPCS: 36415; 80048; 81001; 85025; 87086

== ENCOUNTER 2021-12-09 06:06 | Day surgery (SDC) | payer MEDICARE, OTHER ==
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
[2021-12-08 11:32] VITALS: BMI 35.5
--- NOTE | 2021-12-09 06:31 | XR ---
EXAMINATION TYPE: XR KUB DATE OF EXAM: 12/09/2021 6:24 AM CLINICAL HISTORY: Right-sided kidney stones. TECHNIQUE: Single supine KUB image of the abdomen is obtained. COMPARISON: Prior abdominal x-ray November 03, 2021. FINDINGS: Interval removal of percutaneous nephrostomy tube. New right-sided ureter stent. Prior patt nant 12 mm calculus centrally right kidney is not identified. Colonic fecal material obscures right k idney, likely persistent lower pole calculus measuring up to 9 mm slightly smaller from prior. I susp ect 6 mm lower pole left renal calculus adjacent to L4 transverse process. Left pelvic vascular calci fication. Thoracic spinal stimulator device redemonstrated. Overall nonobstructive bowel gas pattern. Visualize d osseous structures are intact. IMPRESSION: As above.
[2021-12-09] MEDS ORDERED: DEXAMETHASONE SOD PHOSPHATE 4 MG/ML 1 ML VIAL IV ONE (06:34)
[2021-12-09] MEDS ORDERED: LACTATED RINGERS 1,000 ML IV SCH (06:34)
[2021-12-09] MEDS ORDERED: HYDROmorphone 0.5 MG/0.5 ML SYRINGE IVP PRN (06:34)
[2021-12-09] MEDS ORDERED: ONDANSETRON 4 MG/2 ML VIAL IVP ONE (06:34)
[2021-12-09] MEDS ORDERED: LIDOCAINE 1% (10MG/ML) FOR IV START INTRADERMA ONE (07:00)
[2021-12-09 07:20] LABS: Glucose,Whole Blood 132 mg/dL (75-99)
[2021-12-09] MEDS ORDERED: LIDOCAINE 2% INJ 20 MG/ML (2 ML VIAL) ONE (07:26)
[2021-12-09] MEDS ORDERED: MIDAZOLAM 2 MG/2 ML VIAL ONE (07:26)
[2021-12-09] MEDS ORDERED: fentaNYL (PF) 50 MCG/ML 2 ML AMP ONE (07:26)
[2021-12-09] MEDS ORDERED: PROPOFOL 10 MG/ML 20 ML VIAL IV ONE (07:26)
[2021-12-09] MEDS ORDERED: HYDROmorphone (PF) 1 MG/ML ONE (07:26)
--- NOTE | 2021-12-09 09:02 | P.OP ---
Date of Procedure: 12/09/21 Preoperative Diagnosis: Right renal stone, bladder mass Postoperative Diagnosis: Same Procedure(s) Performed: Cystoscopy, bladder biopsy, fulguration, right ureteroscopy, holmium laser lithotripsy, stone basketing and stent removal Implants: None Anesthesia: SRIA Surgeon: Eagle Lorenzo Estimated Blood Loss (ml): 20 Pathology: other (Bladder biopsy, right renal stone) Condition: stable Disposition: PACU Indications for Procedure: This is a 65-year-old female with history of recurrent UTIs and microscopic hematuria. Underwent cystoscopy which showed evidence of multiple white patches throughout the bladder. Discussed with her given this finding I recommend proceeding with bladder biopsy. Discussed the risk which includes but not limited to bleeding, infection, bladder perforation. Discussed also will perform a right-sided ureteroscopy, as there was a small residual stone left following a right-sided PCNL on November 03. Discussed with her with will be removing the stent at the same setting. She understood all the risk and agreed to proceed with a cystoscopy, bladder biopsy, fulguration, right ureteroscopy, with possible holmium laser lithotripsy, stone basketing and stent removal Operative Findings: white edematous patch along the left lateral wall, the remaining of the bladder was within normal limits, stone in the right lower pole Description of Procedure: Patient brought to the operating room, general anesthesia was induced. She was prepped and draped in sterile fashion and placed in dorsal lithotomy position, cystoscopy fitted with a 21-Malagasy sheath was inserted per urethra, cystoscopy was performed which showed a small area along the left lateral wall that was white that was edematous. Using the biopsy forceps a biopsy was obtained of the lesion, the area of biopsy was thoroughly fulgurated. There was no other abnormality within the bladder. Repeat cystoscopy showed no evidence of bleeding. Attention was then carried to the right ureteral orifice which was grasped and removed to the meatus. Next a sensor wire was advanced through the stent and the stent was removed with the wire in place. Next a 1113 Malagasy access sheath was passed over the wire and into the proximal ureter. Next a flexible ureteroscope was inserted through the access sheath, renoscopy was performed showed a stone within the lower pole. Using the holmium laser the stone was dusted, sizable fragments were removed using the stone basket. Repeat renoscopy showed no sizable stones or injury to the kidney. Pullback ureteroscopy was performed which showed no injury to the ureter or any ureteral stones. There was no injury to the ureter or any edema along the ureter thus stent was not placed. The bladder was emptied at the end of the case. Patient tolerate procedure well was taken to recovery in stable condition
[2021-12-09 09:13] VITALS: TEMP 97.8
[2021-12-09] MEDS ORDERED: MEPERIDINE 50 MG/ML SYRINGE IVP ONE ×2 (09:13→09:23)
--- NOTE | 2021-12-09 09:19 | FL ---
EXAMINATION TYPE: FL guidance operating room DATE OF EXAM: 12/09/2021 HISTORY: Fluoroscopy time 4 seconds of fluoroscopy provided. IMPRESSION: 1. Fluoroscopy time.
[2021-12-09] MEDS ORDERED: LACTATED RINGERS 1,000 ML IV ONE (09:26)
[2021-12-09 10:07] VITALS: BP 128/78; PULSE 95; RESP 18
== END 2021-12-09 11:38 | disposition home or self-care (01) ==
LOC: OR 06:06
PROVIDERS: ATTEND Urology
DX: N30.00 Acute cystitis without hematuria (principal); N30.20 Other chronic cystitis without hematuria; Z87.440 Personal history of urinary (tract) infections
CPT/HCPCS: 52354; 52356; 88305; 82365; 74018; C1769; J2250; J1100; J2175; J0690; J2405; J3010; J1170; J2704; J2001

== ENCOUNTER → 2022-01-05 | Outpatient (CLI) | payer MEDICARE, OTHER ==
[2022-01-05 18:17] LABS: Calcium 9.1 mg/dL (8.7-10.3); Uric Acid 5.9 mg/dL (2.9-7.7)
--- NOTE | 2022-01-05 18:19 | US ---
EXAMINATION TYPE: US kidneys/renal and bladder DATE OF EXAM: 01/05/2022 COMPARISON: CT 09/01/2021 CLINICAL HISTORY: N20.0 CALCULUS OF KIDNEY Right. EXAM MEASUREMENTS: Right Kidney: 11.5 x 5.4 x 5.3 cm Left Kidney: 12.0 x 5.5 x 6.9 cm Right Kidney: No hydronephrosis or masses seen Left Kidney: No hydronephrosis or masses seen Bladder: wnl Bilateral Jets seen: No IMPRESSION: Normal renal ultrasound. No arch renal stones with posterior shadowing radiographically apparent rate
== END | disposition home or self-care (01) ==
LOC: RADUSWWP 15:14
PROVIDERS: ATTEND Urology
DX: N20.0 Calculus of kidney (principal)
CPT/HCPCS: 36415; 76770; 82310; 83970; 84550

== ENCOUNTER → 2022-02-03 | Outpatient (CLI) | payer MEDICARE, OTHER ==
--- NOTE | 2022-02-04 07:46 | CT ---
EXAMINATION TYPE: CT brain wo con DATE OF EXAM: 02/03/2022 COMPARISON: None INDICATION: migraines DLP: 1121 mGycm, Automated exposure control for dose reduction was used. CONTRAST: None CT of the brain is performed utilizing 3 mm thick sections through the posterior fossa and 3 mm thick sections through the remaining calvarium. Study is performed within 24 hours of arrival to the hosp [facility]. No abnormal hyperdensity is present to suggest an acute intracranial hemorrhage. No mass lesion is evident. No acute infarcts are evident. Ventricles and sulci are appropriate for the patient age. Paranasal sinuses and mastoid air cells within the [id number] are clear. IMPRESSIONS: 1. No acute intracranial process. Follow-up with MRI can be performed as clinically indicated.
== END | disposition home or self-care (01) ==
LOC: RADCTMAIN 16:36
PROVIDERS: ATTEND Family Medicine
DX: G43.909 Migraine, unspecified, not intractable, without status migrainosus (principal)
CPT/HCPCS: 70450

== ENCOUNTER → 2022-02-24 | Outpatient (CLI) | payer MEDICARE, OTHER ==
[2022-02-24 22:46] LABS: HCT 41.5 % (37.2-46.3); HGB 13.4 g/dL (12.0-15.0); MCH 28.3 pg (27.0-32.0); MCHC 32.3 g/dL (32.0-37.0); MCV 87.6 fL (80.0-97.0); Mean Platelet Volume 10.1 fL (9.5-12.2); NRBC Per 100 WBC 0 /100 WBCS (0.0-0.0); Platelet Count 318 X 10*3/uL (140-440); RBC 4.74 X 10*6/uL (4.10-5.20); RDW 13.9 % (11.5-14.5); WBC 11.05 X 10*3/uL (4.50-10.00)
[2022-02-24 23:21] LABS: ALT 31 U/L (8-44); AST 22 U/L (13-35); African American GFR (CKD) 83.7 (60.0-200.0); Albumin 4.4 g/dL (3.8-4.9); Albumin/Globulin Ratio 2.12 (1.60-3.17); Alkaline Phosphatase 90 U/L (41-126); BUN/Creat Ratio 13.42 Ratio (12.00-20.00); Blood Urea Nitrogen 11.9 mg/dL (9.0-27.0); Calcium 9.8 mg/dL (8.7-10.3); Carbon Dioxide 23.2 mmol/L (20.0-27.5); Chloride 106 mmol/L (96-109); Chol/HDL Ratio 3.34 Ratio; Creatine Kinase 63 U/L (26-186); Globulin 2.1 g/dL (1.6-3.3); Glucose 168 mg/dL (70-110); LDL Cholesterol,Calculated 87.6 mg/dL (0.0-131.0); Magnesium 1.8 mg/dL (1.5-2.4); Non-African American GFR(CKD) 72.2 (60.0-200.0); Potassium 4.6 mmol/L (3.5-5.5); Sodium 142 mmol/L (135-145); Total Protein 6.4 g/dL (6.2-8.2); VLDL Calculation 17.48 mg/dL (5.00-40.00)
== END | disposition home or self-care (01) ==
LOC: LABWHC1 02-23 15:50
PROVIDERS: ATTEND Family Medicine
DX: N32.9 Bladder disorder, unspecified (principal); M48.07 Spinal stenosis, lumbosacral region; N20.0 Calculus of kidney; E11.9 Type 2 diabetes mellitus without complications; E78.5 Hyperlipidemia, unspecified
CPT/HCPCS: 36415; 80053; 80061; 82550; 83036; 83735; 84443; 84481; 85027

== ENCOUNTER → 2022-10-24 | Outpatient (CLI) | payer MEDICARE, OTHER ==
[2022-10-24 15:05] LABS: African American GFR (CKD) >90 (>60 ml/min/1.73 sqM); Blood Urea Nitrogen 11 mg/dL (7-17); Non-African American GFR(CKD) >90 (>60 ml/min/1.73 sqM)
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
== END | disposition home or self-care (01) ==
LOC: RADCTMAIN 14:07
PROVIDERS: ATTEND Urology
DX: N32.89 Other specified disorders of bladder (principal); R31.0 Gross hematuria; Z87.442 Personal history of urinary calculi
CPT/HCPCS: 82565; 84520; 74178; 36415; 74400; Q9967

== ENCOUNTER → 2023-03-06 | Outpatient (CLI) | payer MEDICARE, OTHER | END | disposition home or self-care (01) | LOC: LABWHC1 14:39 | PROVIDERS: ATTEND Family Medicine | DX: Z87.442 Personal history of urinary calculi (principal) | CPT/HCPCS: 36415; 82140 ==

== ENCOUNTER → 2023-03-07 | Outpatient (CLI) | payer MEDICARE, OTHER ==
--- NOTE | 2023-03-14 08:18 | MM ---
Reason for Exam: Screening (asymptomatic). Patient History: Menarche at age 12. First Full-Term at age 19. Postmenopausal. Risk Values: Meg 5 year model risk: 1.2%. NCI Lifetime model risk: 6.9%. Tissue Density: There are scattered fibroglandular densities. Findings: Analyzed By CAD. There is no suspicious group of microcalcifications or new suspicious mass in either breast. Overall Assessment: Negative, BI-RAD 1 Management: Screening Mammogram of both breasts in [address] [facility] will attempt to contact patient to return for supplemental views and ultrasound if indicated. Patient should continue monthly self-breast exams. A clinical breast exam by your physician is recommended on an annual basis. This exam should not preclude additional follow-up of suspicious palpable abnormalities. Note on Meg scores and lifetime risk: 1. A Meg score greater than 3% is considered moderate risk. If this is the case, consider specialist referral to assess eligibility for a risk reducing agent. 2. If overall lifetime risk for the development of breast cancer is 20% or higher, the patient may qualify for future screening with alternating mammogram and breast MRI. Electronically signed and approved by: Darian Garcia DO
== END | disposition home or self-care (01) ==
LOC: RADMAMWWP 14:38
PROVIDERS: ATTEND Family Medicine
DX: Z12.31 Encounter for screening mammogram for malignant neoplasm of breast (principal); Z78.0 Asymptomatic menopausal state
CPT/HCPCS: 77067

== ENCOUNTER 2023-08-30 07:59 | Day surgery (SDC) | payer MEDICARE, OTHER ==
[~2023-08-30 07:59] MED LIST changes: -DEXAMETHASONE SOD PHOSPHATE 4 MG/ML 1 ML VIAL IV ONE; -GENTAMICIN 120 MG in SODIUM CHLORIDE 0.9% 100 ML IVPB PRN; -ONDANSETRON 4 MG/2 ML VIAL IVP ONE
[2023-08-30 08:21] VITALS: TEMP 97.1
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
[2023-08-30] MEDS: LACTATED RINGERS 1,000 ML IV SCH (08:39)
[2023-08-30 08:42] LABS: Glucose,Whole Blood 144 mg/dL (70-110)
[2023-08-30] MEDS ORDERED: PROPOFOL 10 MG/ML 20 ML VIAL IV ONE (09:01)
--- NOTE | 2023-08-30 10:32 | P.PCN ---
Date of Procedure: 08/30/23 Description of Procedure: PREOPERATIVE DIAGNOSIS: Positive Cologuard. Colonoscopy screening. POSTOPERATIVE DIAGNOSIS: Colonoscopy screening. OPERATION: Colonoscopy to the cecum, ileocecal valve and appendiceal orifice. SURGEON: Mecca Vila MD. ANESTHESIA: MAC. INDICATIONS: The patient is a 57-year-old female who presents for colonoscopy screening. Benefits and risks were described and informed consent was obtained. DESCRIPTION OF PROCEDURE: The patient had undergone Golytely prep. The patient had been brought into the operating room and laid in the left lateral decubitus position. After adequate intravenous sedation, the rectum was examined with 2% lidocaine jelly. External hemorrhoids were encountered. The rectal tone was within normal limits. No lesions were palpated in the rectal vault. An Olympus colonoscope was advanced until the cecum, ileocecal valve and appendiceal orifice were clearly viewed. The prep was good. No scattered diverticulosis was encountered. No colonic polyps were found. No evidence of focal colitis was found. Retroflexion of the scope demonstrated grade 2 internal hemorrhoids without active bleeding or inflammation. The colon was desufflated. The patient had tolerated the procedure well. Withdrawal time was over 6 minutes. FINDINGS: Aronchick preparation quality scale 2 (1-5) Internal hemorrhoids, grade 2 External prolapsed hemorrhoids, grade 2 No arteriovenous malformations. No adenomatous polyps. No sigmoid diverticulosis No focal colitis. RECOMMENDATIONS: Lower endoscopy in 5 years, 2028 Plan - Discharge Summary Discharge Rx Participant: No New Discharge Prescriptions: Continue Naproxen [Naprosyn] 500 mg PO Q12HR PRN PRN Reason: Pain Gabapentin 800 mg PO HS PRN PRN Reason: nerve pain HYDROcodone/APAP 10-325MG [[place] 10-325] 1 tab PO BID PRN PRN Reason: Pain Colchicine [Mitigare] 0.6 mg PO DAILY PRN PRN Reason: GOUT FLARE metFORMIN HCL [Glucophage] 500 mg PO BID allopurinoL [Zyloprim] 100 mg PO DAILY Linagliptin [Tradjenta] 5 mg PO DAILY Chlorzoxazone [Parafon Forte DSC] 500 mg PO TID PRN PRN Reason: unknown Rosuvastatin [Crestor] 10 mg PO DAILY Medroxyprogesterone Acetate 5 mg PO DAILY traZODone HCL 100 mg PO HS Ergocalciferol [Vitamin D2 (1250 Mcg = 83125 Iu)] 1,250 mcg PO MO nitrofurantoin macrocrystaL 100 mg PO DAILY Discharge Medication List Gabapentin 800 mg PO HS PRN 03/03/14 [History] Naproxen [Naprosyn] 500 mg PO Q12HR PRN 03/03/14 [History] Colchicine [Mitigare] 0.6 mg PO DAILY PRN 09/16/21 [History] Ergocalciferol [Vitamin D2 (1250 Mcg = 00367 Iu)] 1,250 mcg PO MO 09/16/21 [History] HYDROcodone/APAP 10-325MG [[place] 10-325] 1 tab PO BID PRN 09/16/21 [History] Linagliptin [Tradjenta] 5 mg PO DAILY 09/16/21 [History] Medroxyprogesterone Acetate 5 mg PO DAILY 09/16/21 [History] Rosuvastatin [Crestor] 10 mg PO DAILY 09/16/21 [History] allopurinoL [Zyloprim] 100 mg PO DAILY 09/16/21 [History] metFORMIN HCL [Glucophage] 500 mg PO BID 09/16/21 [History] traZODone HCL 100 mg PO HS 09/16/21 [History] Chlorzoxazone [Parafon Forte DSC] 500 mg PO TID PRN 10/19/21 [History] nitrofurantoin macrocrystaL 100 mg PO DAILY 12/08/21 [History] Follow up Appointment(s)/Referral(s): Mecca Vila MD [STAFF PHYSICIAN] - 09/26/23 Patient Instructions/Handouts: Esophageal Dilation (GEN), Colonoscopy (GEN) Activity/Diet/Wound Care/Special Instructions: Use warm beverages prior to eating solid foods. Repeat colonoscopy 5 years, 2028 Discharge Disposition: HOME SELF-CARE
[2023-08-30 10:33] VITALS: BP 111/75; PULSE 79; RESP 18
--- NOTE | 2023-08-30 10:35 | P.PCN ---
Date of Procedure: 08/30/23 Description of Procedure: PREOPERATIVE DIAGNOSIS: Gastroesophageal reflux disease Dysphagia POSTOPERATIVE DIAGNOSIS: Gastroesophageal reflux disease Gastritis Presbyesophagus Diaphragmatic hiatal hernia OPERATION: Esophagogastroduodenoscopy with rigid dilator over the guidewire 60 Fr with dilation Esophagogastroduodenoscopy with cold forceps biopsies stomach/antrum SURGEON: Mecca Vila MD ANESTHESIA: MAC. INDICATIONS: The patient is a 57-year-old female who presents with a history of gas troesophageal reflux disease with abdominal pain. Benefits and risks of the procedure were described. Informed consent was obtained. DESCRIPTION: The patient was brought into the endoscopy suite and laid in the left lateral decubitus position. After a timeout was confirmed, the procedure was initiated. An Olympus gastroscope was passed into the posterior oropharynx where distal esophageal stenosis was identified. The scope was passed down to the distal esophagus. To address esophageal dysmotility and presbyesophagus, rigid dilator over guidewire was selected. Next using an Nauruan rigid dilator, a guidewire was placed through the gastroscope. Next the scope was withdrawn. A 60-Sami rigid Nauruan dilator was passed carefully along the posterior oropharynx to 50 cm and left in place for 2-3 minutes stretch. The dilator was withdrawn including the guidewire. The scope was reentered along the posterior oropharynx with no findings of full- thickness tear of the upper or lower esophageal sphincter. Additional findings below. The lower esophageal valve was evaluated with Hill grade 1 lower esophageal valve. LA grade B erosive esophagitis was identified. No full-thickness injury was encountered. The GI tract was desufflated. The patient tolerated the procedure well. FINDINGS: Upper esophageal stenosis dilated 60-Sami rigid dilator Diaphragmatic hiatus at 35 cm from the incisors Squamocolumnar junction 38 cm from the incisors. Diaphragmatic hiatal hernia, 3 cm Gastritis along the gastric body and fundus cold forceps biopsies obtained Duodenum with biopsies obtained LA grade B erosive esophagitis, biopsies obtained Hill grade 2 lower esophageal valve. RECOMMENDATIONS: Upper endoscopy as needed
== END 2023-08-30 11:07 | disposition home or self-care (01) ==
LOC: ORWHC2ENDO 07:59
PROVIDERS: ATTEND Surgery Plastic and Reconstructive Surgery
DX: K64.1 Second degree hemorrhoids (principal); K22.2 Esophageal obstruction; K21.00 Gastro-esophageal reflux disease with esophagitis, without bleeding; K29.50 Unspecified chronic gastritis without bleeding; K22.89 Other specified disease of esophagus; K44.9 Diaphragmatic hernia without obstruction or gangrene; Z79.899 Other long term (current) drug therapy; Z79.84 Long term (current) use of oral hypoglycemic drugs; F17.290 Nicotine dependence, other tobacco product, uncomplicated
CPT/HCPCS: 88305; 43239; 43248; J2704; G0121

== ENCOUNTER → 2023-09-28 | Outpatient (CLI) | payer MEDICARE, OTHER | END | disposition home or self-care (01) | LOC: LABWHC1 16:28 | PROVIDERS: ATTEND Surgery Plastic and Reconstructive Surgery | DX: I11.9 Hypertensive heart disease without heart failure (principal) | CPT/HCPCS: 36415; 93005 ==

== ENCOUNTER 2023-11-02 12:20 | Observation (INO) | payer MEDICARE, OTHER ==
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
[~2023-11-02 12:20] MED LIST changes: -LIDOCAINE 1% (10MG/ML) FOR IV START INTRADERMA PRN; +ONDANSETRON 4 MG/2 ML VIAL IVP PRN
[2023-11-02] MEDS: LACTATED RINGERS 1,000 ML IV ONE ×2 (12:47→15:25)
[2023-11-02 13:25] LABS: Basophils % (A) 1 %; Eosinophils # (A) 0.2 k/uL (0-0.7); Eosinophils % (A) 2 %; HCT 40.9 % (34.0-46.0); Lymphocytes # (A) 1.7 k/uL (1.0-4.8); Lymphocytes % (A) 21 %; MCH 29.1 pg (25.0-35.0); MCHC 34.3 g/dL (31.0-37.0); MCV 84.8 fL (80.0-100.0); Mean Platelet Volume 8.1; Monocytes # (A) 0.4 k/uL (0-1.0); Monocytes % (A) 5 %; Neutrophils # (A) 5.8 k/uL (1.3-7.7); Neutrophils % (A) 70 %; Platelet Count 278 k/uL (150-450); RBC 4.83 m/uL (3.80-5.40); RDW 13.6 % (11.5-15.5); WBC 8.3 k/uL (3.8-10.6)
[2023-11-02] MEDS: CHLORHEXIDINE GLUCONATE 15 ML CUP MUCOUS MEM STA (13:26)
[2023-11-02] MEDS: ACETAMINOPHEN TAB 500 MG TAB PO PRN (13:26)
[2023-11-02] MEDS: SCOPOLAMINE 1 MG/72 HR PATCH TRANSDERM STA (13:26)
[2023-11-02] MEDS: ONDANSETRON 4 MG/2 ML VIAL IVP ONE (13:27)
[2023-11-02] MEDS: DEXAMETHASONE SOD PHOSPHATE 4 MG/ML 1 ML VIAL IVP ONE (13:27)
[2023-11-02] MEDS: PANTOPRAZOLE 40 MG/10 ML VIAL IVP STA (13:27)
[2023-11-02] MEDS: HEPARIN SODIUM,PORCINE 5,000 UNIT/ML 1 ML VIAL SQ PRN (13:27)
[2023-11-02 13:31] LABS: ALT 28 U/L (4-34); African American GFR (CKD) >90 (>60 ml/min/1.73 sqM); Albumin 4.2 g/dL (3.5-5.0); Anion Gap 9 mmol/L; Blood Urea Nitrogen 13 mg/dL (7-17); Calcium 9.4 mg/dL (8.4-10.2); Carbon Dioxide 22 mmol/L (22-30); Chloride 108 mmol/L (98-107); Glucose 155 mg/dL (74-99); Non-African American GFR(CKD) >90 (>60 ml/min/1.73 sqM); Sodium 139 mmol/L (137-145); Total Protein 6.7 g/dL (6.3-8.2)
[2023-11-02 13:32] LABS: Glucose,Whole Blood 166 mg/dL (70-110)
[2023-11-02 13:50] LABS: AST 41 U/L (14-36); Alkaline Phosphatase 58 U/L (38-126); Potassium 4.2 mmol/L (3.5-5.1)
[2023-11-02] MEDS ORDERED: HYDROmorphone (PF) 1 MG/ML ONE (14:01)
[2023-11-02] MEDS ORDERED: KETAMINE HCL IN 0.9 % NACL 50 MG/5 ML SYRINGE ONE (14:01)
[2023-11-02] MEDS ORDERED: KETOROLAC 15 MG/ML 1 ML VIAL ONE (14:01)
[2023-11-02] MEDS ORDERED: fentaNYL (PF) 50 MCG/ML 2 ML AMP ONE (14:01)
[2023-11-02] MEDS ORDERED: NEOSTIGMINE 1 MG/ML 10 ML VIAL ONE (14:01)
[2023-11-02] MEDS ORDERED: GLYCOPYRROLATE 0.2 MG/ML 2 ML VIAL ONE (14:01)
[2023-11-02] MEDS ORDERED: MIDAZOLAM 2 MG/2 ML VIAL ONE (14:01)
[2023-11-02] MEDS ORDERED: PHENYLEPHRINE-0.9% NACL SYG 1,000 MCG/10 ML SYRINGE ONE (14:01)
[2023-11-02] MEDS ORDERED: LIDOCAINE 1% INJ 10MG/ML (20 ML MDV) ONE (14:01)
[2023-11-02] MEDS ORDERED: PROPOFOL 10 MG/ML 20 ML VIAL IV ONE (14:01)
[2023-11-02] MEDS ORDERED: ROCURONIUM 10 MG/ML (5 ML VIAL) IV ONE (14:01)
[2023-11-02] MEDS ORDERED: SUCCINYLCHOLINE CHLORIDE 200 MG/10 ML VIAL IV ONE (14:01)
[2023-11-02] MEDS: LIDOCAINE 1%-EPI 1:100,000 20 ML VIAL SQ ONE ×2 (14:30→14:38)
[2023-11-02] MEDS ORDERED: DEXTROSE 50% SYRINGE 50 ML IVP PRN ×2 (15:54)
[2023-11-02 16:05] LABS: Glucose,Whole Blood 209 mg/dL (70-110)
--- NOTE | 2023-11-02 17:45 | P.OP ---
Date of Procedure: 11/02/23 Description of Procedure: SURGEON: ARJUN WALSH MD PREOPERATIVE DIAGNOSES: 1. Paraesophageal hiatal hernia, midline. 2. Gastroesophageal reflux disease with erosive esophagitis 3. Hypertensive heart disease 4. Diabetes type 2, not insulin-dependent 5. Diabetic neuropathy due to diabetes type 2 6. Fibromyalgia 7. Hyperlipidemia 8. Gout 9. Morbid obesity due to excess calories, BMI 35.2 10. Kidney stones 11. Depressive disorder 12. Remote tobacco abuse disorder POSTOPERATIVE DIAGNOSES: 1. Paraesophageal hiatal hernia, midline. 2. Gastroesophageal reflux disease with erosive esophagitis 3. Hypertensive heart disease 4. Diabetes type 2, not insulin-dependent 5. Diabetic neuropathy due to diabetes type 2 6. Fibromyalgia 7. Hyperlipidemia 8. Gout 9. Morbid obesity due to excess calories, BMI 35.2 10. Kidney stones 11. Depressive disorder 12. Remote tobacco abuse disorder 13. Pelvic adhesions 14. Presbyesophagus OPERATION: 1. Robotic-assisted da Daisy Xi laparoscopic reduction and repair of incarcerated paraesophageal hiatal hernia, 5 x 3 cm, with [place] Biopatch A 8 x 8 cm. 2. Intraoperative esophagogastroduodenoscopy 3. Esophageal dilation 56-Pakistani bougie ANESTHESIA: General with local anesthetic. ESTIMATED BLOOD LOSS: 5 mL SPECIMENS REMOVED: None. COMPLICATIONS: None. FINDINGS: 1. No hepatomegaly or fatty liver disease 2. Bougie 56-Pakistani placed 3. 4 x 4 cm paraesophageal incarcerated diaphragmatic hiatal hernia with moder ate dissection into the mediastinum. 4. Intra-abdominal esophageal length over 3 cm obtained 5. Providence Biopatch A onlay mesh placed. 6. Moderate pelvic adhesions omentum to abdominal wall undisturbed 7. Right upper quadrant epiploic appendagitis near her gallbladder undisturbed INDICATIONS: The patient is a 57-year-old female who presents with regurgitation, gastroesophageal reflux disease and a symptomatic diaphragmatic hiatal hernia. Preoperative workup including upper endoscopy demonstrated a Hill grade 4 lower esophageal valve. She completed Barium swallow. Given the severity of her symptoms, particularly of her symptomatic diaphragmatic hiatal hernia, she had elected for surgical intervention. Benefits and risks including bleeding, infection, recurrence, dysphagia, injury to the lung, need for further surgery was described at length. Informed consent was obtained. DESCRIPTION: The patient was brought into the operating room and placed in supine position. Preoperatively she had received Heparin subcutaneously for DVT prophylaxis. After general induction, the abdomen was prepped and draped in standard sterile fashion. The patient had previously voided prior to coming to the operating room. Ioban draping was placed along the abdomen. A timeout protocol was confirmed with the surgical team, for which the patient's name, procedure to be performed including DVT prophylaxis with bilateral SCDs, and preoperative antibiotics were also confirmed. A robotic da Daisy Xi system was prepped and primed. At 10 cm from the xiphoid to just below the umbilicus, proposed port sites were marked with indelible marker along the left axillary line, left mid-clavicular line with each ports were marked 10 cm from each other. A 5 mm 0 degrees laparoscopic trocar entry was performed along the left upper quadrant. The abdomen was insufflated to 15 mmHg pressure she tolerated well. Diagnostic laparoscopy demonstrated no injury to bowel, viscera, or mesentery. The liver surface was unremarkable. No injury had occurred to the small bowel or viscera. Along the hiatus, a defect was found anteriorly. Recurrent left tubal hernia was confirmed. Next, one 8 mm robotic port was placed along the right upper abdomen. An 8-mm port was were placed along the left lateral abdominal wall. The camera 8-mm port was maintained along the epigastrium via the hernia defect. Another 12 mm port was placed along the left upper abdominal wall after exchanging the 5 mm port. Please note that the ports were placed at least 20 cm away from the target anatomy. Care was taken to check that each robotic arm were safely away from collision with the bed or the patient. At the epigastrium, a median sized Orlin liver retractor was placed under direct visualization with the [place] Supervisor placed over the right shoulder of the patient. The additional third robotic arm was placed along the left aspect of the patient. The patient was repositioned in reverse Trendelenburg position at 25-degrees after lowering the bed. The robot was docked above the left side of the patient. Using a grasper for arm 3, a grasper for arm 1, including vessel sealer for arm 2, the robotic system was docked and primed as described. Instruments were interchanged by the food service assistant. I had sat at the console. The gastrohepatic ligament was cleaved using a vessel sealer. Next, the phr enoesophageal ligament was mobilized and the distal esophagus was mobilized circumferentially with care of to the bilateral vagi nerves. The left and right crura was identified. A midline large hiatal hernia and sac was found. Circumferentially, the hernia sac was excised and brought into the peritoneal cavity. Care was taken to avoid any gastrotomy to the upper pole of the stomach. The measured defect was consistent with 5 cm axial length and 3 cm in width. The distal esophagus at least 3 cm was brought into the abdominal cavity. Once the hiatus and crura was dissected, nonabsorbable 2-0 VLOC suture was placed initially with running suture to reapproximate the diaphragmatic hiatus posteriorly. To buttress the repair, a [place] Biopatch A was prepared along the back table as to reinforce the repair as an underlay. The mesh was placed along the crural repair and tagged using horizontal mattress sutures using 2-0 VLOC. I went to the head of the bed to perform intraoperative esoph agogastroduodenoscopy. A 56-Pakistani bougie was carefully placed along the posterior oropharynx through the hiatus and then removed after 2 minutes to address presbyesophagus. An Olympus gastroscope was passed through posterior oropharynx, where the GE junction was found distal to the diaphragmatic hiatus. The intra-abdominal esophageal length obtained during the case was over 3 cm. The stomach was entered. Retroflexion of the scope confirmed a Hill grade 1 lower esophageal valve. Duodenal ulcers along the first portion of duodenum was confirmed without bleeding. The stomach had been desufflated. No evidence of leaks were found either of the mucosal defects of the esophagus or stomach. The hiatal closure was consistent with a 56 Pakistani bougie as a bougie was passed. This concluded the endoscopic portion of the case. The robot was undocked from the patient. I re-scrubbed into the case. All instruments and pneumoperitoneum were evacuated from the abdominal cavity. Incisions were reapproximated using 4-0 Monocryl in an interrupted subcuticular fashion. Liquid glue was applied to the skin. Local anesthetic was infiltrated in all wounds for postop analgesia. Multiple intra-abdominal films were obtained. At the end of the procedure, needle, sponge, and instrument count was verified correct by the dietetic technician registered. The patient had tolerated the procedure well and was taken to the postanesthesia unit in stable condition. Intraoperative films were reviewed with the patient's family who was pleased with the level of care. Console time 17 minutes
[2023-11-02] MEDS: droPERidol 5 MG/2 ML VIAL IVP STA (18:30)
[2023-11-02 18:35] LABS: Glucose,Whole Blood 208 mg/dL (70-110)
[2023-11-02] MEDS: KETOROLAC 15 MG/ML 1 ML VIAL IVP SCH (18:39)
[2023-11-02] MEDS: METOCLOPRAMIDE 5 MG/ML 2 ML VIAL IVP SCH (18:40)
[2023-11-02] MEDS: ONDANSETRON 4 MG/2 ML VIAL IVP SCH (18:40)
[2023-11-02] MEDS: INSULIN ASPART (NovoLOG) 100 UNIT/ML VIAL SQ SCH (18:41)
[2023-11-02 20:40] LABS: Glucose,Whole Blood 230 mg/dL (70-110)
[2023-11-02] MEDS: SIMETHICONE 40 MG/0.6 ML DROPS 2,000 MG/30 ML BOTTLE PO SCH (22:22)
[2023-11-02] MEDS: D5-0.45% NACL WITH KCL 20MEQ/L 1,000 ML IV SCH (22:24)
[2023-11-02] MEDS: HEPARIN SODIUM,PORCINE 5,000 UNIT/ML 1 ML VIAL SQ SCH (22:24)
[2023-11-03 00:31] LABS: Glucose,Whole Blood 202 mg/dL (70-110)
[2023-11-03] MEDS: DEXAMETHASONE SOD PHOSPHATE 4 MG/ML 1 ML VIAL IVP SCH (00:33)
[2023-11-03] MEDS: ACETAMINOPHEN IV (For NPO) 1,000 MG in EMPTY BAG 1 BAG IVPB SCH (00:34)
[2023-11-03] MEDS: HYDROmorphone 0.5 MG/0.5 ML SYRINGE IVP STA (00:56)
[2023-11-03 05:40] LABS: Glucose,Whole Blood 281 mg/dL (70-110)
--- NOTE | 2023-11-03 11:00 | FL ---
EXAMINATION TYPE: FL esophagus cervic/pharynx DATE OF EXAM: 11/03/2023 LIMITED UGI-ESOPHAGRAM: CLINICAL HISTORY: Morbid Obesity, lap band placed earlier today. TECHNIQUE: Limited esophagram is performed utilizing 20 oz of Omnipaque 350. A total of 14 seconds o f fluoroscopic time was utilized during procedure. FINDINGS: The patient swallowed contrast without difficulty or delay. Esophageal peristalsis and mo tility are within normal limits. There is good flow of contrast along the diaphragmatic hiatus into t he stomach, there is no evidence of contrast extravasation to suggest leak. No persistent hiatal agnes ia is seen. Patient remains asymptomatic. IMPRESSION: No evidence of leak or significant obstruction status post Herber fundoplication surgery earlier today.
[2023-11-03 11:56] LABS: Glucose,Whole Blood 294 mg/dL (70-110)
[2023-11-03] MEDS: HYDROmorphone 1 MG/ML 1 ML SYRINGE IVP PRN (12:47)
[2023-11-03 13:31] VITALS: BMI 35.2
[2023-11-03 14:58] VITALS: BP 95/54; PULSE 83; RESP 18; TEMP 97.8
--- NOTE | 2023-11-03 15:08 | P.DS ---
Providers Date of admission: 11/02/23 12:21 Expected date of discharge: 11/03/23 Attending physician: Mecca Vila Primary care physician: Raisa Martinez [facility] Course: POSTOPERATIVE DIAGNOSES: 1. Paraesophageal hiatal hernia, midline. 2. Gastroesophageal reflux disease with erosive esophagitis 3. Hypertensive heart disease 4. Diabetes type 2, not insulin-dependent 5. Diabetic neuropathy due to diabetes type 2 6. Fibromyalgia 7. Hyperlipidemia 8. Gout 9. Morbid obesity due to excess calories, BMI 35.2 10. Kidney stones 11. Depressive disorder 12. Remote tobacco abuse disorder 13. Pelvic adhesions 14. Presbyesophagus COURSE: The patient is a 57-year-old female who presents with regurgitation, gastroesophageal reflux disease and a symptomatic diaphragmatic hiatal hernia. Preoperative workup including upper endoscopy demonstrated a Hill grade 4 lower esophageal valve. She completed Barium swallow. Given the severity of her symptoms, particularly of her symptomatic diaphragmatic hiatal hernia, she had elected for surgical intervention. She underwent robotic hiatal hernia repair with mesh placement without sequela. Esophagram was obtained demonstrating no evidence of leak or obstruction. Patient tolerating liquid diet. Patient was able to verbalize her discharge instructions including Veronica diet prior to discharge. Close follow-up as outpatient was described with immediate follow-up in 4 days via telehealth. Nonnarcotic pain management prescribed. Procedures: OPERATION: 1. Robotic-assisted da Daisy Xi laparoscopic reduction and repair of incarcerated paraesophageal hiatal hernia, 5 x 3 cm, with Badger Biopatch A 8 x 8 cm. 2. Intraoperative esophagogastroduodenoscopy 3. Esophageal dilation 56-Swedish bougie ANESTHESIA: General with local anesthetic. ESTIMATED BLOOD LOSS: 5 mL SPECIMENS REMOVED: None. COMPLICATIONS: None. FINDINGS: 1. No hepatomegaly or fatty liver disease 2. Bougie 56-Swedish placed 3. 4 x 4 cm paraesophageal incarcerated diaphragmatic hiatal hernia with moderate dissection into the mediastinum. 4. Intra-abdominal esophageal length over 3 cm obtained 5. Badger Biopatch A onlay mesh placed. 6. Moderate pelvic adhesions omentum to abdominal wall undisturbed 7. Right upper quadrant epiploic appendagitis near her gallbladder undisturbed Patient Condition at Discharge: Good Plan - Discharge Summary Discharge Rx Participant: No New Discharge Prescriptions: New Simethicone 40 mg/0.6 ml Drops [Mylicon Drops] 80 mg PO Q6HR #30 ml Acetaminophen Tab [Tylenol Tab] 1,000 mg PO Q6HR PRN #30 tablet PRN Reason: Pain Continue Naproxen [Naprosyn] 500 mg PO Q12HR PRN PRN Reason: Pain Gabapentin 800 mg PO HS PRN PRN Reason: nerve pain Colchicine [Mitigare] 0.6 mg PO DAILY PRN PRN Reason: GOUT FLARE metFORMIN HCL [Glucophage] 500 mg PO BID allopurinoL [Zyloprim] 100 mg PO DAILY PRN PRN Reason: gout Linagliptin [Tradjenta] 5 mg PO DAILY Rosuvastatin [Crestor] 10 mg PO DAILY Medroxyprogesterone Acetate 5 mg PO QAM traZODone HCL 100 mg PO HS Ergocalciferol [Vitamin D2 (1250 Mcg = 78748 Iu)] 1,250 mcg PO MO nitrofurantoin macrocrystaL 100 mg PO DAILY Discharge Medication List Gabapentin 800 mg PO HS PRN 03/03/14 [History] Naproxen [Naprosyn] 500 mg PO Q12HR PRN 03/03/14 [History] Colchicine [Mitigare] 0.6 mg PO DAILY PRN 09/16/21 [History] Ergocalciferol [Vitamin D2 (1250 Mcg = 89061 Iu)] 1,250 mcg PO MO 09/16/21 [History] Linagliptin [Tradjenta] 5 mg PO DAILY 09/16/21 [History] Medroxyprogesterone Acetate 5 mg PO QAM 09/16/21 [History] Rosuvastatin [Crestor] 10 mg PO DAILY 09/16/21 [History] allopurinoL [Zyloprim] 100 mg PO DAILY PRN 09/16/21 [History] metFORMIN HCL [Glucophage] 500 mg PO BID 09/16/21 [History] traZODone HCL 100 mg PO HS 09/16/21 [History] nitrofurantoin macrocrystaL 100 mg PO DAILY 12/08/21 [History] Acetaminophen Tab [Tylenol Tab] 1,000 mg PO Q6HR PRN #30 tablet 11/03/23 [Rx] Simethicone 40 mg/0.6 ml Drops [Mylicon Drops] 80 mg PO Q6HR #30 ml 11/03/23 [Rx] Follow up Appointment(s)/Referral(s): Mecca Vila MD [STAFF PHYSICIAN] - 11/07/23 Patient Instructions/Handouts: Hiatal Hernia (DC), Laparoscopic Hiatal Hernia Repair (GEN) Activity/Diet/Wound Care/Special Instructions: Liquid diet only for 2 weeks until November 15 No lifting over 4 pounds in 4 weeks, December 01November shower No soaking in bath tubs for 2 weeks, November 15 Please notify your surgeon if you develop nausea and vomiting including new onset of abdominal pain. Please ambulate at all times. Use Simethicone, Gas-X, Tylenol and ibuprofen or Aleve scheduled for the next 24-48 hours for best pain relief. Use ice along incisions for the today to prevent swelling. Please open, cut, crush pills larger than the size of a tic tack No carbonated beverages. No straws. Do not remove scopolamine patch for 3 days, if present Avoiding Gas Avoid drinking through a straw. Do not chew gum or tobacco. These actions cause you to swallow air, which produces excess gas in your stomach. Chew with your mouth closed. Avoid any foods that cause stomach gas and distention. These foods include corn, dried beans, peas, lentils, onions, broccoli, cauliflower and any food from the cabbage family. Avoid carbonated drinks, alcohol, citrus and tomato products. Carbonated drinks (sodas) are not allowed for the first six to eight weeks after surgery. After this time you can try them again in small amounts Clear Liquid Diet The first diet after surgery is the clear liquid diet. It includes the following liquids: Apple juice Cranberry juice Grape juice Chicken broth Beef broth Flavored gelatin (Jell-O) Decaf tea and coffee Caffeinated beverages are permitted based on tolerance Popsicles [place]in[place]e ice Full Liquid Diet The full liquid diet contains anything on the clear liquid diet, plus: Milk, soy, rice and almond (no chocolate) Cream of wheat, cream of rice, grits Strained creamed soups (no tomato or broccoli) Vanilla and strawberry-flavored ice cream Sherbet Blended, custard styled or whipped yogurt (plain or vanilla only) Vanilla and butterscotch pudding (no chocolate or coconut) Nutritional drinks including Ensure, Boost, [place] Instant Breakfast (no chocolate-flavored) Note: Dairy products, such as milk, ice cream and pudding, may cause diarrhea in some people just after surgery. You may need to avoid milk products. If so, substitute them with lactose-free beverages, such as soy, rice, Lactaid or almond milks. Discharge Disposition: HOME SELF-CARE
[2023-11-07 05:54] LABS: Anabasine Urine <2.0 ng/mL (<2.0)
== END 2023-11-03 16:58 | disposition home or self-care (01) ==
LOC: OR 12:20 → 4SSUR 12:21
PROVIDERS: ADMIT Surgery Plastic and Reconstructive Surgery; ATTEND Surgery Plastic and Reconstructive Surgery
DX: K44.0 Diaphragmatic hernia with obstruction, without gangrene (principal); K21.00 Gastro-esophageal reflux disease with esophagitis, without bleeding; K22.89 Other specified disease of esophagus; K63.89 Other specified diseases of intestine; K26.9 Duodenal ulcer, unspecified as acute or chronic, without hemorrhage or perforation; N73.6 Female pelvic peritoneal adhesions (postinfective); I11.9 Hypertensive heart disease without heart failure; E11.40 Type 2 diabetes mellitus with diabetic neuropathy, unspecified; F32.A Depression, unspecified; M19.90 Unspecified osteoarthritis, unspecified site; M79.7 Fibromyalgia; E78.5 Hyperlipidemia, unspecified; M10.9 Gout, unspecified; E66.01 Morbid (severe) obesity due to excess calories; Z68.35 Body mass index [BMI] 35.0-35.9, adult; N20.0 Calculus of kidney; F17.290 Nicotine dependence, other tobacco product, uncomplicated; Z96.82 Presence of neurostimulator; Z79.84 Long term (current) use of oral hypoglycemic drugs; Z79.890 Hormone replacement therapy; Z79.899 Other long term (current) drug therapy; Z98.890 Other specified postprocedural states
CPT/HCPCS: 43282; S2900; 74210; 80053; 80323; 83036; 85025; 96372

== ENCOUNTER → 2024-08-06 | Outpatient (CLI) | payer MEDICARE, OTHER ==
[2024-08-06 16:00] LABS: African American GFR (CKD) 84 (>60 ml/min/1.73 sqM); Blood Urea Nitrogen 17 mg/dL (7-17); Non-African American GFR(CKD) 73 (>60 ml/min/1.73 sqM)
--- NOTE | 2024-08-06 23:47 | CT ---
EXAMINATION TYPE: CT urogram wo/w con DATE OF EXAM: 08/06/2024 4:49 PM COMPARISON: 10/24/2022 CLINICAL INDICATION: Female, 58 years old with history of N20.0 CALCULUS OF KIDNEY; R31.0, Calculus o f kidney. Gross hematuria. TECHNIQUE: Axial images were obtained from above the diaphragm to the pubic rami in the axial plane a t 5 mm thick sections. Reconstructed images are reviewed on the computer in the coronal plane. Thre e-D reconstructed images performed through the renal collecting system were performed on separate com puter by the technologist and reviewed. Pre and postcontrast imaging is performed. CONTRAST: 100 ml mL of Isovue 370. Study performed DLP: 4691.2 mGycm, Automated exposure control for dose reduction was used. FINDINGS: Limited CT sections are obtained the lung bases. The lung bases are clear. CT ABDOMEN: Liver: Normal Spleen: Normal Pancreas: Normal Adrenal glands: The adrenal glands are normal. Gallbladder: Normal Kidneys: There is a 0.4 cm posterior lateral right mid nonobstructing renal stone. Minimal prominence of the proximal right ureter may be present. Consider recent passage of a renal stone. No obstructin g renal or ureteral stones evident. No hydronephrosis is evident. No renal masses are evident. Aorta: Vascular calcification is within the aorta. Inferior vena cava: Normal. CT PELVIS: Loops of bowel within the abdomen and pelvis are normal. This study is without oral contrast limi ting bowel evaluation. Fecal debris is at the cecum. Appendix: Normal as visualized. Urinary bladder: Normal. Genitourinary structures: Uterus is normal. Adnexa are unremarkable. Osseous structures: No suspicious lytic or sclerotic lesions. COMPARISON: No significant interval change. IMPRESSION: 1. Nonobstructing right renal stone. 2. No suspicious renal or ureteral abnormality. [facility], Workstation: [id number], 08/06/2024 11:44 PM
== END | disposition home or self-care (01) ==
LOC: RADCTMAIN 14:59
PROVIDERS: ATTEND Urology
DX: N20.0 Calculus of kidney (principal); R31.0 Gross hematuria
CPT/HCPCS: 82565; 84520; 74178; 36415; 74400; Q9967

== ENCOUNTER → 2025-01-06 | Outpatient (CLI) | payer MEDICARE, OTHER ==
--- NOTE | 2025-01-06 18:34 | MM ---
Reason for Exam: Screening (asymptomatic). Last mammogram was performed 1 year(s) and 10 month(s) ago. Patient History: Menarche at age 12. First Full-Term at age 19. Postmenopausal. Risk Values: Meg 5 year model risk: 1.3%. NCI Lifetime model risk: 6.6%. Prior Study Comparison: 03/07/2023 Bilateral MG screening mammo w CAD, [facility]. Tissue Density: There are scattered areas of fibroglandular density. Findings: Analyzed By CAD. Asymmetric density central left MLO view along the retroareolar plane at a middle depth appears more pronounced. This may represent superimposition shadow but further evaluation is recommended. Other areas of asymmetric density on the right are unchanged. Overall Assessment: Incomplete: need additional imaging evaluation, BI-RAD 0 Management: Special View Mammogram of the left breast. [facility] will attempt to contact patient to return for supplemental views and ultrasound if indicated. [facility], , 01/06/2025 5:35 PM. Electronically signed and approved by: Christian House M.D. Radiologist
== END | disposition home or self-care (01) ==
LOC: RADMAMWWP 15:03
PROVIDERS: ATTEND Family Medicine
DX: Z12.31 Encounter for screening mammogram for malignant neoplasm of breast (principal); R92.323 Mammographic fibroglandular density, bilateral breasts; Z78.0 Asymptomatic menopausal state
CPT/HCPCS: 77067

== ENCOUNTER → 2025-01-08 | Outpatient (CLI) | payer MEDICARE, OTHER ==
--- NOTE | 2025-01-09 10:39 | MM ---
Reason for Exam: Additional evaluation requested from abnormal screening. Last screening mammogram was performed less than 1 month ago. Patient History: Menarche at age 12. First Full-Term at age 19. Postmenopausal. Risk Values: Meg 5 year model risk: 1.3%. NCI Lifetime model risk: 6.6%. Prior Study Comparison: 03/07/2023 Bilateral MG screening mammo w CAD, [facility]. 01/06/2025 Bilateral MG screening mammo w CAD, [facility]. Tissue Density: Left: The breasts are heterogeneously dense, which may obscure small masses. Findings: Analyzed By CAD. The centrally located asymmetric density on the MLO view middle depth disperses on additional views compatible with benign superimposition shadow. Overall Assessment: Benign, BI-RAD 2 Management: Screening Mammogram of both breasts in 1 year. Results were given to the patient verbally at the time of exam. Patient should continue monthly self-breast exams. A clinical breast exam by your physician is recommended on an annual basis. This exam should not preclude additional follow-up of suspicious palpable abnormalities. Note on Meg scores and lifetime risk: 1. A Meg score greater than 3% is considered moderate risk. If this is the case, consider specialist referral to assess eligibility for a risk reducing agent. 2. If overall lifetime risk for the development of breast cancer is 20% or higher, the patient may qualify for future screening with alternating mammogram and breast MRI. [facility], , 01/09/2025 10:36 AM. Electronically signed and approved by: Christian House M.D. Radiologist
== END | disposition home or self-care (01) ==
LOC: RADMAMWWP 14:04
PROVIDERS: ATTEND Family Medicine
DX: R92.8 Other abnormal and inconclusive findings on diagnostic imaging of breast (principal); R92.332 Mammographic heterogeneous density, left breast; Z78.0 Asymptomatic menopausal state
CPT/HCPCS: 77061; 77065